=== PATIENT | male | born 1945 | race Two or more races ===

== ENCOUNTER 2020-08-27 16:21 | Inpatient (IN) | payer MEDICARE ==
[~2020-08-27] VITALS: Ht 167.6 cm; Wt 70.5 kg
[2020-08-27] MEDS ORDERED: ASPirin 81 mg TAB PO ONE (17:00)
[2020-08-27 17:10] LABS: Basophils # (auto) 0.1 10 ^3/uL (0-0.2); Basophils % (auto) 0.7 % (0.0-2.0); Eosinophils # (auto) 0.2 10 ^3/uL (0-0.8); Eosinophils % (auto) 2.2 % (0.0-7.0); Hematocrit 47.9 % (41.0-53.0); Hemoglobin 15.8 g/dL (13.5-17.5); Lymphocytes # (auto) 0.9 10 ^3/uL (0.4-5.4); Lymphocytes % (auto) 10.7 % (10.0-50.0); Mean Corpuscular Hemoglobin 28.8 pg (28.0-32.0); Mean Corpuscular Hgb Conc. 32.9 g/dL (32.0-36.0); Mean Corpuscular Volume 87.7 fL (80.0-100.0); Monocytes # (auto) 0.7 10 ^3/uL (0-1.3); Monocytes % (auto) 8.8 % (0.0-12.0); Neutrophils # (auto) 6.6 10 ^3/uL (1.6-8.6); Neutrophils % (auto) 77.6 % (37.0-80.0); Nucleated Red Blood Cells % 0.2 %; Platelet Count (auto) 158 10^3/uL (140-450); Red Blood Cells 5.47 10^6/uL (4.5-5.90); Red Cell Distribution Width 15.9 % (11.8-14.3); White Blood Cell 8.4 10^3/uL (4.4-10.8)
[2020-08-27] MEDS ORDERED: dilTIAZem 25 MG/5 ML VIAL IV ONE ×2 (17:12→17:30)
[2020-08-27 17:14] LABS: Calcium 9.1 mg/dL (8.5-10.1); Potassium 5.4 mmol/L (3.5-5.1)
[2020-08-27 17:16] LABS: BUN/Creatinine Ratio 16.8
[2020-08-27 17:23] LABS: Bilirubin, Total 1.5 mg/dL (0.2-1.0); Total Protein 8.1 g/dL (6.4-8.2)
[2020-08-27] MEDS ORDERED: SODIUM CHLORIDE 0.9% 1,000 ML IV ONE (17:30)
[2020-08-27] MEDS ORDERED: MORPHINE SULF INJ 2 MG/ML SYRINGE 1ML IV ONE (17:45)
[2020-08-27] MEDS ORDERED: ONDANSETRON HCL 4 MG/2 ML VIAL IV ONE (17:45)
[2020-08-27] MEDS ORDERED: InsuLIN REG 1unit/0.01ml Soln (100units/ml) IV ONE (18:00)
[2020-08-27] MEDS ORDERED: MORPHINE SULFATE 4 MG/ML SYR/VIAL IV PRN (18:15)
[2020-08-27] MEDS ORDERED: DEXTROSE (50%) 50ML SYRG IV PRN (18:15)
[2020-08-27] MEDS ORDERED: ACETAMINOPHEN 325 MG TAB PO PRN (18:15)
[2020-08-27] MEDS ORDERED: METOPROLOL TARTRATE 1MG/1ML-5ML VIAL IV PRN (18:15)
[2020-08-27] MEDS ORDERED: NITROGLYCERIN 0.4 MG SL TAB SL PRN ×2 (18:15)
[2020-08-27] MEDS ORDERED: ONDANSETRON HCL 4 MG/2 ML VIAL IV PRN (18:15)
[2020-08-27] MEDS ORDERED: MORPHINE SULF INJ 2 MG/ML SYRINGE 1ML IV PRN (18:15)
[2020-08-27] MEDS: SODIUM CHLORIDE 0.9% 1,000 ML IV SCH (18:47)
[2020-08-27 19:04] LABS: INR 1.19 (0.9-1.15); Partial Thromboplastin Time 26.8 sec (23.0-31.2)
[2020-08-27] MEDS: ACCU-CHEK COMFORT CURVE STRIP VI SCH (20:00)
[2020-08-27] MEDS: InsuLIN REG 1unit/0.01ml Soln (100units/ml) SC SCH (20:00)
--- NOTE | 2020-08-27 20:15 | NUR ---
Telemetry admit from ER MAURO PALUMBO admitted to Telemetry unit after SBAR received. Patient oriented to Jose zuñiga RN, unit, room, bed, and unit policies regarding patient care and visiting hours. Patient now on continuous telemetry monitoring, tele box # [id number] and telemetry reading on arrival to unit is nsr. Patient placed on bedside oxygen, weighed by bedscale and encouraged to call if they need something. All questions and concerns addressed, patient verbalized understanding.
[2020-08-27] MEDS: ATORVASTATIN 20 MG TAB PO SCH (22:00)
[2020-08-27] MEDS: METOPROLOL TARTRATE 25 MG TAB PO SCH (22:00)
[2020-08-27] MEDS: ENOXAPARIN SOD 80 MG/0.8ML SYRINGE SC SCH (22:00)
[2020-08-27] MEDS ORDERED: METOPROLOL TARTRATE 25 MG TAB PO SCH (22:00)
[2020-08-28] MEDS: InsuLIN REG 1unit/0.01ml Soln (100units/ml) SC SCH ×6 (00:01→20:00)
[2020-08-28] MEDS: ACCU-CHEK COMFORT CURVE STRIP VI SCH ×6 (04:00→20:00)
[2020-08-28] MEDS ORDERED: ATOR80TA PO (04:24)
[2020-08-28] MEDS ORDERED: CANA100T OR (04:24)
[2020-08-28] MEDS ORDERED: METO-159 PO (04:24)
[2020-08-28] MEDS: METOPROLOL TARTRATE 25 MG TAB PO SCH ×4 (05:48→21:57)
[2020-08-28 06:09] LABS: Basophils # (auto) 0 10 ^3/uL (0-0.2); Basophils % (auto) 0.5 % (0.0-2.0); Eosinophils # (auto) 0.2 10 ^3/uL (0-0.8); Eosinophils % (auto) 2.3 % (0.0-7.0); Hematocrit 42.9 % (41.0-53.0); Hemoglobin 14.3 g/dL (13.5-17.5); Lymphocytes % (auto) 12.1 % (10.0-50.0); Mean Corpuscular Hemoglobin 28.8 pg (28.0-32.0); Mean Corpuscular Hgb Conc. 33.2 g/dL (32.0-36.0); Mean Corpuscular Volume 86.6 fL (80.0-100.0); Monocytes % (auto) 12.5 % (0.0-12.0); Neutrophils % (auto) 72.6 % (37.0-80.0); Nucleated Red Blood Cells % 0.1 %; Platelet Count (auto) 132 10^3/uL (140-450); Red Blood Cells 4.95 10^6/uL (4.5-5.90); Red Cell Distribution Width 15.3 % (11.8-14.3); White Blood Cell 8.3 10^3/uL (4.4-10.8)
[2020-08-28 06:45] LABS: Potassium 3.9 mmol/L (3.5-5.1)
[2020-08-28 07:23] LABS: BUN/Creatinine Ratio 23.8; Calcium 8.6 mg/dL (8.5-10.1)
[2020-08-28] MEDS: SODIUM CHLORIDE 0.9% 1,000 ML IV SCH ×2 (07:35→21:58)
--- NOTE | 2020-08-28 07:40 | NUR ---
Opening Shift Note Assumed care of patient, awake and alert. No S/S of distress/SOB or pain. Instructed on POC and to call for assist PRN, will continue to monitor for changes Q1hr an
[2020-08-28 08:00] VITALS: BP 133/76
--- NOTE | 2020-08-28 08:00 | NUR ---
PATIENT TAKEN DOWN TO CUTTER IN. NO SIGNS AND SYMPTOMS OF DISTRESS NOTED.
[2020-08-28] MEDS ORDERED: LIDOCAINE 2%HCL (LOCAL ANESTH.) INJ 20ML MDV ONE (08:02)
[2020-08-28] MEDS ORDERED: IOHEXOL 350 MG/ML 100ML IJ ONE (08:03)
[2020-08-28] MEDS ORDERED: SODIUM CHL 0.9% 50 ML ONE (08:31)
[2020-08-28] MEDS ORDERED: fentaNYL CITRATE 100 MCG/2 ML VL ONE (08:31)
[2020-08-28] MEDS ORDERED: ANGIOMAX 250 MG VIAL IV ONE (08:31)
[2020-08-28] MEDS ORDERED: HEPARIN SODIUM (PORCINE) 5000 UNITS/ML 1ML VIAL ONE (08:31)
[2020-08-28] MEDS ORDERED: MIDAZOLAM HCL 1MG/1ML-2 ML VIAL ONE (08:32)
[2020-08-28] MEDS ORDERED: VERAPAMIL 2.5MG/ML INJ 2ML VIAL IV ONE (08:43)
[2020-08-28] MEDS ORDERED: IODIXANOL 320MG/ML 100ML BTL IV ONE ×2 (08:48→09:32)
[2020-08-28 09:05] VITALS: BP 133/76
[2020-08-28] MEDS ORDERED: ASPirin 325 MG TAB ONE (09:52)
[2020-08-28] MEDS ORDERED: CLOPIDOGREL 300 MG TAB ONE (09:52)
[2020-08-28] MEDS: LISINOPRIL 5 MG TAB PO SCH (10:00)
[2020-08-28] MEDS: CLOPIDOGREL BISULFATE 75 MG TAB PO SCH (10:00)
[2020-08-28] MEDS: ASPirin 81 mg TAB PO SCH (10:00)
[2020-08-28] MEDS: DOCUSATE SOD 100 MG CAP PO SCH (10:00)
[2020-08-28] MEDS: ASPirin-EC 81 mg tab PO SCH (10:00)
[2020-08-28] MEDS ORDERED: OPTISON 3ml Vial for INJ IV ONE (10:30)
[2020-08-28 12:00] VITALS: BP 154/86
--- NOTE | 2020-08-28 13:15 | NUR ---
VASC BAND OFF PATIENT TOLERATED WELL. NO SIGNS AND SYMPTOMS OF BLEEDING NOTED. TEGA DERM PLACED SECURELY WITH GAUZE. WILL CONTINUE TO MONITOR.
[2020-08-28 17:03] LABS: Urine WBC None Seen /hpf (0 - 3)
[2020-08-28 17:13] VITALS: BP 153/97
[2020-08-28 17:45] LABS: Urine Bacteria NONE SEEN /hpf (None Seen); Urine Blood Negative /uL (Negative)
[2020-08-28 20:00] VITALS: BP 151/90
[2020-08-28] MEDS: ATORVASTATIN 20 MG TAB PO SCH ×2 (21:56)
[2020-08-28] MEDS: ENOXAPARIN SOD 80 MG/0.8ML SYRINGE SC SCH (21:57)
[2020-08-28 22:06] VITALS: BP 151/90
[2020-08-29] VITALS (7 sets, daily range): BP systolic 87–162; BP diastolic 59–93
[2020-08-29] MEDS: ACCU-CHEK COMFORT CURVE STRIP VI SCH ×5 (04:00→22:14)
[2020-08-29] MEDS: InsuLIN REG 1unit/0.01ml Soln (100units/ml) SC SCH ×4 (04:00→11:33)
[2020-08-29] MEDS: METOPROLOL TARTRATE 25 MG TAB PO SCH (07:48)
[2020-08-29] MEDS: DOCUSATE SOD 100 MG CAP PO SCH (09:56)
[2020-08-29] MEDS: ASPirin 81 mg TAB PO SCH (09:56)
[2020-08-29 09:57] LABS: Basophils # (auto) 0 10 ^3/uL (0-0.2); Basophils % (auto) 0.4 % (0.0-2.0); Eosinophils # (auto) 0.1 10 ^3/uL (0-0.8); Eosinophils % (auto) 1.6 % (0.0-7.0); Hematocrit 43.4 % (41.0-53.0); Hemoglobin 14.5 g/dL (13.5-17.5); Lymphocytes # (auto) 0.6 10 ^3/uL (0.4-5.4); Lymphocytes % (auto) 7.4 % (10.0-50.0); Mean Corpuscular Hemoglobin 28.6 pg (28.0-32.0); Mean Corpuscular Hgb Conc. 33.4 g/dL (32.0-36.0); Mean Corpuscular Volume 85.7 fL (80.0-100.0); Monocytes # (auto) 0.8 10 ^3/uL (0-1.3); Monocytes % (auto) 10.4 % (0.0-12.0); Neutrophils # (auto) 6.5 10 ^3/uL (1.6-8.6); Neutrophils % (auto) 80.2 % (37.0-80.0); Platelet Count (auto) 132 10^3/uL (140-450); Red Blood Cells 5.06 10^6/uL (4.5-5.90); Red Cell Distribution Width 15.7 % (11.8-14.3); White Blood Cell 8.1 10^3/uL (4.4-10.8)
[2020-08-29] MEDS: CLOPIDOGREL BISULFATE 75 MG TAB PO SCH (09:57)
[2020-08-29] MEDS: LISINOPRIL 5 MG TAB PO SCH (09:57)
[2020-08-29] MEDS: ASPirin-EC 81 mg tab PO SCH (09:57)
[2020-08-29] MEDS ORDERED: CARVEDILOL 12.5 MG TAB PO SCH (10:00)
[2020-08-29] MEDS: SODIUM CHLORIDE 0.9% 1,000 ML IV SCH ×2 (10:05→23:35)
[2020-08-29 10:11] LABS: Albumin 3.5 g/dL (3.4-5.0); BUN/Creatinine Ratio 21.3; Calcium 8.4 mg/dL (8.5-10.1); Potassium 4.1 mmol/L (3.5-5.1)
[2020-08-29 10:13] LABS: Bilirubin, Total 1.1 mg/dL (0.2-1.0); Total Protein 7.2 g/dL (6.4-8.2)
--- NOTE | 2020-08-29 15:10 | NUR ---
Opening Shift Note Received report from LISA Hines and assumed care of patient, awake and alert. No S/S of distress/SOB or pain. Instructed patient to call for assist if needed and verbalized understanding.will continue to monitor .
--- NOTE | 2020-08-29 19:00 | NUR ---
Opening Shift Note Assumed care of patient, awake and alert. No S/S of distress/SOB or pain. Instructed on POC and to call for assist PRN, will continue to monitor for changes Q1hr and PRN.
[2020-08-29] MEDS ORDERED: InsuLIN REG 1unit/0.01ml Soln (100units/ml) SC SCH (22:00)
[2020-08-29] MEDS: CARVEDILOL 12.5 MG TAB PO SCH (22:08)
[2020-08-29] MEDS: ATORVASTATIN 20 MG TAB PO SCH (22:08)
[2020-08-29] MEDS: ENOXAPARIN SOD 80 MG/0.8ML SYRINGE SC SCH (22:09)
[2020-08-30 05:00] VITALS: BP 126/111
[2020-08-30] MEDS: CARVEDILOL 12.5 MG TAB PO SCH ×2 (06:11→14:00)
[2020-08-30] MEDS: InsuLIN REG 1unit/0.01ml Soln (100units/ml) SC SCH ×3 (07:00→17:00)
[2020-08-30] MEDS: ACCU-CHEK COMFORT CURVE STRIP VI SCH ×3 (07:00→17:00)
[2020-08-30 07:21] LABS: Hematocrit 38.3 % (41.0-53.0); Hemoglobin 12.8 g/dL (13.5-17.5); Mean Corpuscular Hemoglobin 28.4 pg (28.0-32.0); Mean Corpuscular Hgb Conc. 33.4 g/dL (32.0-36.0); Mean Corpuscular Volume 84.9 fL (80.0-100.0); Platelet Count (auto) 110 10^3/uL (140-450); Red Blood Cells 4.51 10^6/uL (4.5-5.90); Red Cell Distribution Width 15.4 % (11.8-14.3)
[2020-08-30 07:24] LABS: Basophils % (manual) 0 (0.0-2.0); Blast Cells 0; Promyelocytes % 0
[2020-08-30 07:26] LABS: Calcium 8.5 mg/dL (8.5-10.1); Potassium 4.2 mmol/L (3.5-5.1)
[2020-08-30 07:30] LABS: Albumin 3.1 g/dL (3.4-5.0); BUN/Creatinine Ratio 22.3; Magnesium 2.2 mg/dL (1.6-2.6)
[2020-08-30 07:33] LABS: Total Protein 6.2 g/dL (6.4-8.2)
--- NOTE | 2020-08-30 07:50 | NUR ---
Opening Shift Note Assumed care of patient, awake and alert. No S/S of distress/SOB or pain. Instructed on POC and to call for assist PRN, will continue to monitor for changes Q1hr and PRN. Bed locked in lowest position with two side rails up and call light in reach.
[2020-08-30 08:00] VITALS: BP 108/61
[2020-08-30 08:35] LABS: Band Neutrophils % (manual) 9; Eosinophils % (manual) 6 (0-7); Lymphocytes % (manual) 4 (10.0-50.0); Metamyelocytes % 1; Monocytes % (manual) 15 (0-12); Myelocytes % 2; Reactive Lymphocytes 2
[2020-08-30 09:00] VITALS: BP 108/61
[2020-08-30] MEDS ORDERED: LISINOPRIL 5 MG TAB PO SCH (10:00)
[2020-08-30] MEDS: CLOPIDOGREL BISULFATE 75 MG TAB PO SCH (10:44)
[2020-08-30] MEDS: DOCUSATE SOD 100 MG CAP PO SCH (10:44)
[2020-08-30] MEDS: ASPirin 81 mg TAB PO SCH (10:44)
--- NOTE | 2020-08-30 11:29 | NUR ---
Nutrition Assessment Notes Please refer to link for full assessment notes. Est Energy needs: 3587-6899 kcals (20-23 kcal/kgBW) Est Protein needs: 71-78 gms/day (1.0-1.1 gm/kgBW) Will continue to monitor and reassess prn. Addendum: 08/30/20 at [address] Amended: Links added.
--- NOTE | 2020-08-30 12:00 | NUR ---
PATIENT REFUSES INSULIN FOR BS OF 274, STATES IT WILL CORRECT ITSELF. HE TAKES MEDICATIONS AT HOME AND WILL BE DISCHARGED.
[2020-08-30 13:00] VITALS: BP 121/68
[2020-08-30] MEDS: SODIUM CHLORIDE 0.9% 1,000 ML IV SCH (13:11)
--- NOTE | 2020-08-30 15:23 | NUR ---
Medicare IM Patient has been provided with IM by Edel GONZALEZ and placed in chart. Addendum: 08/30/20 at 1524 by Kinjal BARRETT Amended: Links added.
--- NOTE | 2020-08-30 15:54 | NUR ---
Assessment Patient 75 year old male, Patient was unable to participate with SW for assessment, SW worker called maldonado Padgett. Per daughter, prior to admission to [facility] patient is alert and oriented. Per daughter, patient is retired and receives social security benefits as income. Per daughter, patient has his own house on the same property as his daughter Deborah. Per daughter, patient can discharge to maldonado Padgett ([phone]), house to recover his illness. Per daughter, she will provide transportation post discharge. Per daughter, she and her sister (Deborah), are their dad support system. Per daughter, patient does not have an Advance Directive. Discharge planning: Patient will return home or to his daughter Lorin house post discharge and will follow up with PCP post discharge. SW will provide Advance Directive post discharge. There are no other discharge needs to address at this moment. Addendum: 08/30/20 at 1603 by SHAHAB BARRETT Amended: Links added.
--- NOTE | 2020-08-30 16:15 | NUR ---
COREG HELD DO TO DECREASED HEART RATE. RAYMOND FAM AWARE.
[2020-08-30 16:30] VITALS: BP 131/69
[2020-08-30 16:40] VITALS: BP 131/69
--- NOTE | 2020-08-30 18:16 | NUR ---
Discharge instructions given as ordered. Encourage to follow up with PMD as instructed. All questions and concerns addressed. Patient verbalized understanding. Medication reconciliation form completed and copy given to patient. NO Home medications held in Pharmacy and none to be returned to patient, and no needed vaccines given. IV removed with catheter intact, pressure dressing applied. Telemetry unit returned to ICU. Patient taken to vehicle via wheelchair with all personal belongings, accompanied by staff and family member. No distress noted at time of departure. Patient had all new prescriptions in hand of Plavix 75 mg daily, Aspirin 81 mg daily, and Coreg 25 mg PO BID. I picked up and delivered to patient, also educated patient on taking all previous and new prescriptions are prescribed, and do not stop taking any medications without physician instructing.
--- NOTE | 2020-08-30 18:18 | NUR ---
PATIENT DISCHARGE SUMMARY FAXED TO DR MIRANDA. PER NELDA FAM PATIENT WILL BE SCHEDULED TO GO IN FRIDAY SHE HAS CONTACTED HER OFFICE AND CONFIRMED THIS. PATIENT GIVEN NUMBER TO [facility]. PATIENT TO SCHEDULE APPOINTMENT FOR CARDIOLOGY IN 1-2 WEEKS OFFICES WERE CLOSED. PATIENT VERBALIZED UNDERSTANDING.
== END 2020-08-30 18:00 | disposition home or self-care (01) | DRG 246 ==
LOC: ER 16:25 → TELE 16:26 → TELE-CENTR 19:45
PROVIDERS: ADMIT Hospitalist; ATTEND Internal Medicine
PROC: 027034Z Dilation of Coronary Artery, One Artery with Drug-eluting Intraluminal Device, Percutaneous Approach (ICD-10-PCS; principal; 2020-08-28)
PROC: 4A023N7 Measurement of Cardiac Sampling and Pressure, Left Heart, Percutaneous Approach (ICD-10-PCS; 2020-08-28)
PROC: B211YZZ Fluoroscopy of Multiple Coronary Arteries using Other Contrast (ICD-10-PCS; 2020-08-28)
PROC: B213YZZ Fluoroscopy of Multiple Coronary Artery Bypass Grafts using Other Contrast (ICD-10-PCS; 2020-08-28)
PROC: B218YZZ Fluoroscopy of Left Internal Mammary Bypass Graft using Other Contrast (ICD-10-PCS; 2020-08-28)
PROC: B215YZZ Fluoroscopy of Left Heart using Other Contrast (ICD-10-PCS; 2020-08-28)
DX: I21.4 Non-ST elevation (NSTEMI) myocardial infarction (principal); I50.43 Acute on chronic combined systolic (congestive) and diastolic (congestive) heart failure; N17.0 Acute kidney failure with tubular necrosis; I47.1 Supraventricular tachycardia; I13.0 Hypertensive heart and chronic kidney disease with heart failure and stage 1 through stage 4 chronic kidney disease, or unspecified chronic kidney disease; I48.91 Unspecified atrial fibrillation; E11.65 Type 2 diabetes mellitus with hyperglycemia; E11.22 Type 2 diabetes mellitus with diabetic chronic kidney disease; E78.5 Hyperlipidemia, unspecified; I25.10 Atherosclerotic heart disease of native coronary artery without angina pectoris; N18.9 Chronic kidney disease, unspecified; Z79.01 Long term (current) use of anticoagulants; Z79.82 Long term (current) use of aspirin; Z82.49 Family history of ischemic heart disease and other diseases of the circulatory system; Z95.1 Presence of aortocoronary bypass graft
CPT/HCPCS: 36415; 71045; 80048; 80053; 80061; 81001; 82962; 83036; 83735; 83880; 84443; 84484; 85007; 85025; 85027; 85610; 85730; 92928; 93005; 93306; 93459; 99152; 99153; C1874; G0378; J1815; J2250; J2405; Q9956; Q9967

== ENCOUNTER 2020-12-31 21:59 | Inpatient (IN) | payer MEDICARE ==
[~2020-12-31] VITALS: Ht 165.1 cm; Wt 79.0 kg
[2020-12-31 21:50] VITALS: BP 93/61
[~2020-12-31 21:59] MED LIST: ATOR80TA PO; CANA100T OR
[2020-12-31] MEDS ORDERED: GLIP10TA9 PO ×2 (22:22→22:49)
[2020-12-31] MEDS ORDERED: MORPHINE SULF INJ 2 MG/ML SYRINGE 1ML IV PRN ×2 (22:45→23:15)
[2020-12-31] MEDS ORDERED: NITROGLYCERIN 0.4 MG SL TAB SL PRN (22:45)
[2020-12-31] MEDS ORDERED: ATOR-47 PO (22:49)
[2020-12-31] MEDS ORDERED: CARV25TA55 PO (22:49)
[2020-12-31] MEDS ORDERED: ASPI-543 PO (22:49)
[2020-12-31] MEDS ORDERED: GLIM4TAB42 PO (22:49)
[2020-12-31] MEDS ORDERED: CANA100T PO (22:49)
[2020-12-31] MEDS ORDERED: FERR27TA2 PO (22:49)
[2020-12-31] MEDS ORDERED: LISI-275 PO (22:49)
[2020-12-31] MEDS ORDERED: HEPARIN DRIP/D5W 100UNITS/ML 250 ML IV SCH (23:45)
[2020-12-31] MEDS ORDERED: HEPARIN SODIUM (PORCINE) 5000 UNITS/ML 1ML VIAL IV ONE (23:45)
[2021-01-01] MEDS ORDERED: DEXTROSE (50%) 50ML SYRG IV PRN
[2021-01-01 01:25] LABS: Basophils # (auto) 0 10 ^3/uL (0-0.2); Basophils % (auto) 0.2 % (0.0-2.0); Eosinophils # (auto) 0.1 10 ^3/uL (0-0.8); Eosinophils % (auto) 1.9 % (0.0-7.0); Hematocrit 43.2 % (41.0-53.0); Hemoglobin 14.5 g/dL (13.5-17.5); Lymphocytes # (auto) 0.5 10 ^3/uL (0.4-5.4); Lymphocytes % (auto) 5.9 % (10.0-50.0); Mean Corpuscular Hemoglobin 28.4 pg (28.0-32.0); Mean Corpuscular Hgb Conc. 33.7 g/dL (32.0-36.0); Mean Corpuscular Volume 84.5 fL (80.0-100.0); Monocytes # (auto) 0.6 10 ^3/uL (0-1.3); Monocytes % (auto) 8.2 % (0.0-12.0); Neutrophils # (auto) 6.5 10 ^3/uL (1.6-8.6); Neutrophils % (auto) 83.8 % (37.0-80.0); Nucleated Red Blood Cells % 0.1 %; Platelet Count (auto) 140 10^3/uL (140-450); Red Blood Cells 5.12 10^6/uL (4.5-5.90); Red Cell Distribution Width 18.3 % (11.8-14.3); White Blood Cell 7.8 10^3/uL (4.4-10.8)
[2021-01-01 01:37] LABS: INR 1.13 (0.9-1.15); Partial Thromboplastin Time 30.2 sec (23.0-31.2)
[2021-01-01] MEDS ORDERED: HEPARIN SODIUM (PORCINE) 5000 UNITS/ML 1ML VIAL IV ONE (01:44)
[2021-01-01] MEDS ORDERED: HEPARIN DRIP/D5W 100UNITS/ML 250 ML IV SCH (01:46)
[2021-01-01 05:00] VITALS: BP 101/65
[2021-01-01] MEDS: InsuLIN REG 1unit/0.01ml Soln (100units/ml) SC SCH ×4 (06:35→22:00)
[2021-01-01] MEDS: ACCU-CHEK COMFORT CURVE STRIP VI SCH ×4 (06:36→22:08)
[2021-01-01] MEDS ORDERED: LIDOCAINE 2%HCL (LOCAL ANESTH.) INJ 20ML MDV ONE (07:18)
[2021-01-01] MEDS ORDERED: IODIXANOL 320MG/ML 100ML BTL IV ONE ×3 (07:18→09:13)
[2021-01-01] MEDS ORDERED: fentaNYL CITRATE 100 MCG/2 ML VL ONE (07:51)
[2021-01-01] MEDS ORDERED: ANGIOMAX 250 MG VIAL IV ONE (07:51)
[2021-01-01] MEDS ORDERED: SODIUM CHL 0.9% 50 ML ONE (07:52)
[2021-01-01] MEDS ORDERED: MIDAZOLAM HCL 1MG/1ML-2 ML VIAL ONE (07:52)
[2021-01-01] MEDS ORDERED: TICAGRELOR 90 MG TAB ONE (09:36)
[2021-01-01] MEDS ORDERED: ASPirin 325 MG TAB ONE (09:36)
[2021-01-01] MEDS ORDERED: levoFLOXacin 500MG 100 ML IV SCH (10:00)
[2021-01-01] MEDS ORDERED: CLOPIDOGREL BISULFATE 75 MG TAB PO SCH (10:00)
[2021-01-01] MEDS: INSULIN LANTUS (GLARGINE) 1 /0.01ml (100units/ml) SC SCH (10:00)
[2021-01-01 11:34] LABS: Basophils # (auto) 0 10 ^3/uL (0-0.2); Basophils % (auto) 0.2 % (0.0-2.0); Eosinophils # (auto) 0.2 10 ^3/uL (0-0.8); Eosinophils % (auto) 2.2 % (0.0-7.0); Hematocrit 42.3 % (41.0-53.0); Hemoglobin 14.1 g/dL (13.5-17.5); Lymphocytes # (auto) 0.5 10 ^3/uL (0.4-5.4); Lymphocytes % (auto) 6.7 % (10.0-50.0); Mean Corpuscular Hemoglobin 27.9 pg (28.0-32.0); Mean Corpuscular Hgb Conc. 33.2 g/dL (32.0-36.0); Monocytes # (auto) 0.7 10 ^3/uL (0-1.3); Monocytes % (auto) 9.4 % (0.0-12.0); Neutrophils # (auto) 5.6 10 ^3/uL (1.6-8.6); Neutrophils % (auto) 81.5 % (37.0-80.0); Platelet Count (auto) 114 10^3/uL (140-450); Red Blood Cells 5.04 10^6/uL (4.5-5.90); Red Cell Distribution Width 17.7 % (11.8-14.3); White Blood Cell 6.9 10^3/uL (4.4-10.8)
[2021-01-01 12:01] LABS: INR 1.67 (0.9-1.15)
[2021-01-01 12:03] LABS: Partial Thromboplastin Time 84.8 sec (23.0-31.2)
[2021-01-01 12:14] LABS: Calcium 8.1 mg/dL (8.5-10.1); Potassium 3.8 mmol/L (3.5-5.1)
[2021-01-01] MEDS: ASPirin 81 mg TAB PO SCH (12:14)
[2021-01-01 13:00] VITALS: BP 106/73
[2021-01-01 16:22] LABS: INR 1.28 (0.9-1.15); Partial Thromboplastin Time 49.4 sec (23.0-31.2)
[2021-01-01 17:00] VITALS: BP 114/73
[2021-01-01] MEDS: TICAGRELOR 90 MG TAB PO SCH (21:57)
[2021-01-01] MEDS: ATORVASTATIN 20 MG TAB PO SCH (21:58)
[2021-01-01 22:00] VITALS: BP 104/67
[2021-01-02 05:00] VITALS: BP 120/78
[2021-01-02] MEDS: ACCU-CHEK COMFORT CURVE STRIP VI SCH ×4 (06:44→22:12)
[2021-01-02] MEDS: InsuLIN REG 1unit/0.01ml Soln (100units/ml) SC SCH ×4 (06:45→22:13)
[2021-01-02 09:00] VITALS: BP 98/56
[2021-01-02 09:14] LABS: Basophils # (auto) 0 10 ^3/uL (0-0.2); Basophils % (auto) 0.3 % (0.0-2.0); Eosinophils # (auto) 0.1 10 ^3/uL (0-0.8); Eosinophils % (auto) 1.8 % (0.0-7.0); Hematocrit 41.8 % (41.0-53.0); Hemoglobin 13.9 g/dL (13.5-17.5); Lymphocytes # (auto) 0.3 10 ^3/uL (0.4-5.4); Lymphocytes % (auto) 4.7 % (10.0-50.0); Mean Corpuscular Hgb Conc. 33.3 g/dL (32.0-36.0); Mean Corpuscular Volume 84.1 fL (80.0-100.0); Monocytes # (auto) 0.5 10 ^3/uL (0-1.3); Monocytes % (auto) 7.1 % (0.0-12.0); Neutrophils # (auto) 6.3 10 ^3/uL (1.6-8.6); Neutrophils % (auto) 86.1 % (37.0-80.0); Nucleated Red Blood Cells % 0.2 %; Platelet Count (auto) 131 10^3/uL (140-450); Red Blood Cells 4.97 10^6/uL (4.5-5.90); Red Cell Distribution Width 18.4 % (11.8-14.3); White Blood Cell 7.3 10^3/uL (4.4-10.8)
[2021-01-02 09:24] LABS: Albumin 2.6 g/dL (3.4-5.0); Calcium 8.2 mg/dL (8.5-10.1); Magnesium 2.4 mg/dL (1.6-2.6); Potassium 3.8 mmol/L (3.5-5.1)
[2021-01-02 09:28] LABS: BUN/Creatinine Ratio 27.6; Bilirubin, Total 1.4 mg/dL (0.2-1.0); Total Protein 5.9 g/dL (6.4-8.2)
[2021-01-02] MEDS: ASPirin 81 mg TAB PO SCH (10:46)
[2021-01-02] MEDS: TICAGRELOR 90 MG TAB PO SCH ×2 (10:47→22:24)
[2021-01-02] MEDS: SACUBITRIL-VALSARTAN 24mg/26mg TAB PO SCH ×2 (10:48→22:30)
[2021-01-02] MEDS: levoFLOXacin 250MG 50 ML IV SCH (10:48)
[2021-01-02] MEDS: CARVEDILOL 3.125 MG TAB PO SCH ×2 (10:48→22:30)
[2021-01-02] MEDS: INSULIN LANTUS (GLARGINE) 1 /0.01ml (100units/ml) SC SCH (12:20)
[2021-01-02 13:00] VITALS: BP 108/64
[2021-01-02 16:49] VITALS: BP 104/59
[2021-01-02] MEDS ORDERED: METOPROLOL TARTRATE 1MG/1ML-5ML VIAL IV ONE (19:30)
[2021-01-02] MEDS ORDERED: AMIODARONE 450mg/250ml AE 250 ML IV SCH (21:15)
[2021-01-02] MEDS ORDERED: SODIUM CHLORIDE 0.9% 250 ML IV ONE (21:15)
[2021-01-02 22:12] VITALS: BP 88/63
[2021-01-02] MEDS: ATORVASTATIN 20 MG TAB PO SCH (22:14)
[2021-01-02] MEDS: AMIODARONE 450mg/250ml AE 250 ML IV SCH (22:21)
[2021-01-03] MEDS: AMIODARONE 450mg/250ml AE 250 ML IV SCH ×3 (05:13→20:15)
[2021-01-03 05:17] VITALS: BP 122/75
[2021-01-03] MEDS: ACCU-CHEK COMFORT CURVE STRIP VI SCH ×4 (06:42→22:11)
[2021-01-03] MEDS: InsuLIN REG 1unit/0.01ml Soln (100units/ml) SC SCH ×4 (06:49→22:27)
[2021-01-03] MEDS ORDERED: CLOPIDOGREL 300 MG TAB PO ONE (08:00)
[2021-01-03 09:00] VITALS: BP 114/71
[2021-01-03] MEDS: levoFLOXacin 250MG 50 ML IV SCH (10:15)
[2021-01-03] MEDS: ASPirin 81 mg TAB PO SCH (10:16)
[2021-01-03] MEDS: SACUBITRIL-VALSARTAN 24mg/26mg TAB PO SCH ×2 (10:16→22:12)
[2021-01-03] MEDS: ENOXAPARIN SOD 80 MG/0.8ML SYRINGE SC SCH ×2 (10:17→22:11)
[2021-01-03] MEDS ORDERED: PANTOPRAZOLE 40 MG TAB PO ONE (11:00)
[2021-01-03] MEDS: INSULIN LANTUS (GLARGINE) 1 /0.01ml (100units/ml) SC SCH (11:45)
[2021-01-03 13:00] VITALS: BP 106/69
[2021-01-03] MEDS: METOPROLOL TARTRATE 50 MG TAB PO SCH ×2 (14:00→22:20)
[2021-01-03] MEDS: FUROSEMIDE 40 MG/4 ML VIAL IV SCH (14:29)
[2021-01-03 17:00] VITALS: BP 129/56
[2021-01-03 20:00] VITALS: BP 125/63
[2021-01-03 22:00] VITALS: BP 125/63
[2021-01-03] MEDS: ATORVASTATIN 20 MG TAB PO SCH (22:11)
[2021-01-04] VITALS (7 sets, daily range): BP systolic 93–113; BP diastolic 46–74
[2021-01-04] MEDS: METOPROLOL TARTRATE 50 MG TAB PO SCH (05:50)
[2021-01-04] MEDS: ACCU-CHEK COMFORT CURVE STRIP VI SCH ×4 (06:33→22:04)
[2021-01-04] MEDS: InsuLIN REG 1unit/0.01ml Soln (100units/ml) SC SCH ×4 (06:33→22:05)
[2021-01-04 06:45] LABS: BUN/Creatinine Ratio 29.8; Calcium 7.9 mg/dL (8.5-10.1)
[2021-01-04] MEDS: PANTOPRAZOLE 40 MG TAB PO SCH (09:59)
[2021-01-04] MEDS: CLOPIDOGREL BISULFATE 75 MG TAB PO SCH (09:59)
[2021-01-04] MEDS: SACUBITRIL-VALSARTAN 24mg/26mg TAB PO SCH ×2 (09:59→22:09)
[2021-01-04] MEDS: levoFLOXacin 250MG 50 ML IV SCH (10:00)
[2021-01-04] MEDS: APIXABAN 5 MG TAB PO SCH ×2 (10:00→22:09)
[2021-01-04] MEDS: METOPROLOL SUCCINATE XL 50 MG TAB PO SCH (10:00)
[2021-01-04] MEDS ORDERED: PANTOPRAZOLE 40 MG TAB PO SCH (10:00)
[2021-01-04] MEDS: FUROSEMIDE 40 MG/4 ML VIAL IV SCH (10:09)
[2021-01-04] MEDS: INSULIN LANTUS (GLARGINE) 1 /0.01ml (100units/ml) SC SCH (10:12)
[2021-01-04] MEDS ORDERED: AMIODARONE HCL 200 MG TAB PO SCH (22:00)
[2021-01-04] MEDS: ATORVASTATIN 20 MG TAB PO SCH (22:09)
[2021-01-05 05:44] VITALS: BP 109/56
[2021-01-05 07:39] LABS: BUN/Creatinine Ratio 29.2; Calcium 8.2 mg/dL (8.5-10.1); Potassium 4.1 mmol/L (3.5-5.1)
[2021-01-05 08:00] VITALS: BP 105/58
[2021-01-05] MEDS: ACCU-CHEK COMFORT CURVE STRIP VI SCH ×3 (09:00→17:56)
[2021-01-05] MEDS: InsuLIN REG 1unit/0.01ml Soln (100units/ml) SC SCH ×3 (09:00→17:55)
[2021-01-05] MEDS: SACUBITRIL-VALSARTAN 24mg/26mg TAB PO SCH (09:44)
[2021-01-05] MEDS: APIXABAN 5 MG TAB PO SCH (09:44)
[2021-01-05] MEDS: METOPROLOL SUCCINATE XL 50 MG TAB PO SCH (09:44)
[2021-01-05] MEDS: PANTOPRAZOLE 40 MG TAB PO SCH (09:44)
[2021-01-05] MEDS: CLOPIDOGREL BISULFATE 75 MG TAB PO SCH (09:44)
[2021-01-05] MEDS: INSULIN LANTUS (GLARGINE) 1 /0.01ml (100units/ml) SC SCH (09:45)
[2021-01-05 12:00] VITALS: BP 126/75
[2021-01-05 16:00] VITALS: BP 117/59
[2021-01-05 17:17] VITALS: BP 117/59
== END 2021-01-05 19:00 | disposition home or self-care (01) | DRG 250 ==
LOC: TELE-CENTR 21:59
PROVIDERS: ADMIT Internal Medicine; ATTEND Internal Medicine
PROC: 4A023N7 Measurement of Cardiac Sampling and Pressure, Left Heart, Percutaneous Approach (ICD-10-PCS; principal; 2021-01-01)
PROC: 02703ZZ Dilation of Coronary Artery, One Artery, Percutaneous Approach (ICD-10-PCS; 2021-01-01)
PROC: B213YZZ Fluoroscopy of Multiple Coronary Artery Bypass Grafts using Other Contrast (ICD-10-PCS; 2021-01-01)
PROC: B211YZZ Fluoroscopy of Multiple Coronary Arteries using Other Contrast (ICD-10-PCS; 2021-01-01)
PROC: B218YZZ Fluoroscopy of Left Internal Mammary Bypass Graft using Other Contrast (ICD-10-PCS; 2021-01-01)
PROC: B215YZZ Fluoroscopy of Left Heart using Other Contrast (ICD-10-PCS; 2021-01-01)
DX: T82.855A Stenosis of coronary artery stent, initial encounter (principal); I21.4 Non-ST elevation (NSTEMI) myocardial infarction; I25.810 Atherosclerosis of coronary artery bypass graft(s) without angina pectoris; E87.1 Hypo-osmolality and hyponatremia; I13.0 Hypertensive heart and chronic kidney disease with heart failure and stage 1 through stage 4 chronic kidney disease, or unspecified chronic kidney disease; I25.110 Atherosclerotic heart disease of native coronary artery with unstable angina pectoris; I50.20 Unspecified systolic (congestive) heart failure; R18.8 Other ascites; E11.22 Type 2 diabetes mellitus with diabetic chronic kidney disease; E11.40 Type 2 diabetes mellitus with diabetic neuropathy, unspecified; E11.649 Type 2 diabetes mellitus with hypoglycemia without coma; E78.5 Hyperlipidemia, unspecified; I25.5 Ischemic cardiomyopathy; I27.20 Pulmonary hypertension, unspecified; I48.0 Paroxysmal atrial fibrillation; Y84.0 Cardiac catheterization as the cause of abnormal reaction of the patient, or of later complication, without mention of misadventure at the time of the procedure; K57.30 Diverticulosis of large intestine without perforation or abscess without bleeding; K74.60 Unspecified cirrhosis of liver; K80.20 Calculus of gallbladder without cholecystitis without obstruction; N18.9 Chronic kidney disease, unspecified; Z79.02 Long term (current) use of antithrombotics/antiplatelets; Z79.84 Long term (current) use of oral hypoglycemic drugs; Z79.899 Other long term (current) drug therapy; Z83.3 Family history of diabetes mellitus; Z95.1 Presence of aortocoronary bypass graft; Y92.89 Other specified places as the place of occurrence of the external cause
CPT/HCPCS: 36415; 76700; 80048; 80053; 82270; 82962; 83735; 85025; 85610; 85730; 92937; 93306; 93458; 99152; 99153; G0378; J1815; J1956; J2250; Q9967

== ENCOUNTER 2021-05-26 21:21 | Inpatient (IN) | payer MEDICARE ==
[~2021-05-26] VITALS: Ht 172.7 cm; Wt 84.4 kg
[~2021-05-26 21:21] MED LIST changes: -CANA100T OR; +CANA100T PO; +CARV25TA55 PO; +FERR27TA2 PO; +GLIM4TAB42 PO; +GLIP10TA9 PO
[2021-05-26 22:06] LABS: Basophils # (auto) 0 10 ^3/uL (0-0.2); Eosinophils # (auto) 0.1 10 ^3/uL (0-0.8); Lymphocytes # (auto) 0.5 10 ^3/uL (0.4-5.4); Mean Corpuscular Hemoglobin 19.2 pg (28.0-32.0); Monocytes # (auto) 0.5 10 ^3/uL (0-1.3); Neutrophils # (auto) 4.7 10 ^3/uL (1.6-8.6); Nucleated Red Blood Cells % 0.3 %; Red Blood Cells 2.46 10^6/uL (4.5-5.90)
[2021-05-26 22:08] LABS: Basophils % (auto) 0.5 % (0.0-2.0); Eosinophils % (auto) 1.9 % (0.0-7.0); Hematocrit 15.8 % (41.0-53.0); Monocytes % (auto) 9.2 % (0.0-12.0); Neutrophils % (auto) 79.4 % (37.0-80.0); White Blood Cell 5.9 10^3/uL (4.4-10.8)
[2021-05-26 22:22] LABS: Hemoglobin 4.7 g/dL (13.5-17.5)
[2021-05-26 22:25] LABS: Anion Gap 9 (5-15); Blood Urea Nitrogen 51 mg/dL (7-18); Calcium 7.5 mg/dL (8.5-10.1); Carbon Dioxide 17 mmol/L (21-32); Chloride 115 mmol/L (98-107); Glucose 261 mg/dL (74-106); Potassium 4.3 mmol/L (3.5-5.1); Sodium 141 mmol/L (136-145)
[2021-05-26 22:28] LABS: Alanine Aminotransferase 18 U/L (16-61); Albumin 2.1 g/dL (3.4-5.0); BUN/Creatinine Ratio 27.4; GFR African American 46 mL/min; GFR Non-African American 38 mL/min
[2021-05-26 22:33] LABS: Alkaline Phosphatase 65 U/L (45-117); Bilirubin, Total 0.7 mg/dL (0.2-1.0); Total Protein 4.9 g/dL (6.4-8.2)
[2021-05-26 22:34] LABS: INR 1.37 (0.9-1.15); Partial Thromboplastin Time 32.6 sec (23.6-33.0)
[2021-05-26 22:44] LABS: Aspartate Aminotransferase 13 U/L (15-37)
[2021-05-27] VITALS (12 sets, daily range): BP systolic 110–124; BP diastolic 40–65
[2021-05-27] MEDS ORDERED: MORPHINE SULFATE INJECTION 2 MG/ML SYRG IV PRN ×2 (01:45)
[2021-05-27] MEDS ORDERED: ONDANSETRON HCL 4 MG/2 ML VIAL IV PRN (01:45)
[2021-05-27] MEDS ORDERED: DEXTROSE (50%) 50ML SYRG IV PRN (01:45)
[2021-05-27] MEDS ORDERED: NITROGLYCERIN 0.4 MG SL TAB SL PRN (01:45)
[2021-05-27] MEDS: ACCU-CHEK COMFORT CURVE STRIP VI SCH ×3 (06:35→18:00)
[2021-05-27] MEDS: InsuLIN REG 1unit/0.01ml Soln (100units/ml) SC SCH ×3 (06:35→18:00)
[2021-05-27 08:25] LABS: Urine Bacteria NONE SEEN /hpf (None Seen); Urine Blood Negative /uL (Negative); Urine Mucus FEW (None Seen); Urine Specific Gravity 1.021 (1.001-1.035); Urine WBC 1 /hpf (0 - 3)
[2021-05-27] MEDS: CARVEDILOL 12.5 MG TAB PO SCH ×2 (09:42→22:00)
[2021-05-27] MEDS: PANTOPRAZOLE 40 MG/10 ML VIAL INJ IV SCH ×2 (10:05→22:18)
[2021-05-27] MEDS: ATORVASTATIN 20 MG TAB PO SCH (10:05)
[2021-05-27 10:42] LABS: Basophils # (auto) 0 10 ^3/uL (0-0.2); Basophils % (auto) 0.6 % (0.0-2.0); Eosinophils # (auto) 0.2 10 ^3/uL (0-0.8); Eosinophils % (auto) 2.3 % (0.0-7.0); Hematocrit 27.1 % (41.0-53.0); Hemoglobin 8.5 g/dL (13.5-17.5); Lymphocytes # (auto) 0.5 10 ^3/uL (0.4-5.4); Lymphocytes % (auto) 6.8 % (10.0-50.0); Mean Corpuscular Hemoglobin 22.1 pg (28.0-32.0); Mean Corpuscular Hgb Conc. 31.2 g/dL (32.0-36.0); Mean Corpuscular Volume 70.9 fL (80.0-100.0); Monocytes # (auto) 0.5 10 ^3/uL (0-1.3); Monocytes % (auto) 7.2 % (0.0-12.0); Neutrophils # (auto) 5.6 10 ^3/uL (1.6-8.6); Neutrophils % (auto) 83.1 % (37.0-80.0); Nucleated Red Blood Cells % 0.1 %; Red Blood Cells 3.83 10^6/uL (4.5-5.90); White Blood Cell 6.8 10^3/uL (4.4-10.8)
[2021-05-27 10:43] LABS: Red Cell Distribution Width 26.5 % (11.8-14.3)
[2021-05-27 10:59] LABS: Albumin 2.4 g/dL (3.4-5.0); Calcium 8.3 mg/dL (8.5-10.1); Potassium 4.4 mmol/L (3.5-5.1)
[2021-05-27 11:03] LABS: BUN/Creatinine Ratio 31.3; Total Protein 5.5 g/dL (6.4-8.2)
[2021-05-27] MEDS: SODIUM CHLORIDE 0.9% 1,000 ML IV SCH (14:15)
[2021-05-27 17:25] LABS: % Iron Saturation 6.9 % (20-55)
[2021-05-27 17:35] LABS: Thyroid Stimulating Hormone 2.82 uIU/mL (0.358-3.74)
[2021-05-27 17:50] LABS: Ferritin 6.6 ng/mL (10-322); Free T4 (Free Thyroxine) 1.34 ng/dL (0.89-1.76)
[2021-05-28] VITALS (7 sets, daily range): BP systolic 115–134; BP diastolic 54–62
[2021-05-28] MEDS: ACCU-CHEK COMFORT CURVE STRIP VI SCH ×4 (00:45→17:16)
[2021-05-28] MEDS: InsuLIN REG 1unit/0.01ml Soln (100units/ml) SC SCH ×4 (00:46→17:16)
[2021-05-28 02:19] LABS: Protein, Urine 21.9 mg/dL (0.0-11.9)
[2021-05-28] MEDS: SODIUM CHLORIDE 0.9% 1,000 ML IV SCH ×2 (04:33→15:28)
[2021-05-28 06:24] LABS: Basophils # (auto) 0 10 ^3/uL (0-0.2); Eosinophils # (auto) 0.2 10 ^3/uL (0-0.8); Hemoglobin 9.1 g/dL (13.5-17.5); Lymphocytes # (auto) 0.5 10 ^3/uL (0.4-5.4); Nucleated Red Blood Cells % 0.1 %
[2021-05-28 06:29] LABS: Basophils % (auto) 0.6 % (0.0-2.0); Hematocrit 27.8 % (41.0-53.0); Lymphocytes % (auto) 8.9 % (10.0-50.0); Mean Corpuscular Hemoglobin 23.2 pg (28.0-32.0); Mean Corpuscular Hgb Conc. 32.8 g/dL (32.0-36.0); Mean Corpuscular Volume 70.7 fL (80.0-100.0); Monocytes # (auto) 0.4 10 ^3/uL (0-1.3); Monocytes % (auto) 8.1 % (0.0-12.0); Neutrophils # (auto) 4.3 10 ^3/uL (1.6-8.6); Neutrophils % (auto) 78.4 % (37.0-80.0); Red Blood Cells 3.93 10^6/uL (4.5-5.90); White Blood Cell 5.4 10^3/uL (4.4-10.8)
[2021-05-28 06:45] LABS: Red Cell Distribution Width 25.7 % (11.8-14.3)
[2021-05-28 06:59] LABS: Albumin 2.2 g/dL (3.4-5.0); Calcium 7.8 mg/dL (8.5-10.1)
[2021-05-28 07:03] LABS: BUN/Creatinine Ratio 28.3; Bilirubin, Total 1.4 mg/dL (0.2-1.0); Total Protein 5.5 g/dL (6.4-8.2)
[2021-05-28 07:07] LABS: Cholesterol 74 mg/dL (< 200); HDL Cholesterol 28 mg/dL (40-59); LDL Cholesterol 38 mg/dL (< 100); Triglycerides 114 mg/dL (< 150)
[2021-05-28] MEDS: PANTOPRAZOLE 40 MG/10 ML VIAL INJ IV SCH ×2 (09:31→22:55)
[2021-05-28] MEDS: CARVEDILOL 12.5 MG TAB PO SCH ×2 (09:32→22:00)
[2021-05-28] MEDS: ATORVASTATIN 20 MG TAB PO SCH (09:34)
[2021-05-28 10:05] LABS: Folate (Folic Acid) 14.33 ng/mL (5.38-24)
[2021-05-29] MEDS: ACCU-CHEK COMFORT CURVE STRIP VI SCH ×4 (00:15→17:17)
[2021-05-29] MEDS: InsuLIN REG 1unit/0.01ml Soln (100units/ml) SC SCH ×4 (06:00→17:17)
[2021-05-29] MEDS: SODIUM CHLORIDE 0.9% 1,000 ML IV SCH ×2 (06:00→17:54)
[2021-05-29 06:55] LABS: Basophils # (auto) 0 10 ^3/uL (0-0.2); Eosinophils # (auto) 0.3 10 ^3/uL (0-0.8); Monocytes # (auto) 0.6 10 ^3/uL (0-1.3); Neutrophils # (auto) 3.7 10 ^3/uL (1.6-8.6); Nucleated Red Blood Cells % 0.1 %; White Blood Cell 5.1 10^3/uL (4.4-10.8)
[2021-05-29 06:58] LABS: Basophils % (auto) 0.8 % (0.0-2.0); Eosinophils % (auto) 5.2 % (0.0-7.0); Hematocrit 26.7 % (41.0-53.0); Hemoglobin 8.6 g/dL (13.5-17.5); Lymphocytes # (auto) 0.6 10 ^3/uL (0.4-5.4); Lymphocytes % (auto) 10.8 % (10.0-50.0); Mean Corpuscular Hemoglobin 22.4 pg (28.0-32.0); Mean Corpuscular Hgb Conc. 32.2 g/dL (32.0-36.0); Mean Corpuscular Volume 69.6 fL (80.0-100.0); Monocytes % (auto) 11.9 % (0.0-12.0); Neutrophils % (auto) 71.3 % (37.0-80.0); Red Blood Cells 3.84 10^6/uL (4.5-5.90)
[2021-05-29 07:10] LABS: Red Cell Distribution Width 26.1 % (11.8-14.3)
[2021-05-29 07:16] LABS: Albumin 2.2 g/dL (3.4-5.0); BUN/Creatinine Ratio 20.2; Calcium 7.7 mg/dL (8.5-10.1); Potassium 3.9 mmol/L (3.5-5.1)
[2021-05-29 07:18] LABS: Bilirubin, Total 1.3 mg/dL (0.2-1.0); Total Protein 5.2 g/dL (6.4-8.2)
[2021-05-29 08:00] VITALS: BP 126/61
[2021-05-29 09:00] VITALS: BP 126/61
[2021-05-29] MEDS: ATORVASTATIN 20 MG TAB PO SCH (09:26)
[2021-05-29] MEDS: PANTOPRAZOLE 40 MG/10 ML VIAL INJ IV SCH ×2 (09:26→22:00)
[2021-05-29] MEDS: CARVEDILOL 12.5 MG TAB PO SCH ×2 (10:00→22:00)
[2021-05-29 12:35] VITALS: BP 123/49
[2021-05-29 16:56] VITALS: BP 128/63
[2021-05-29 22:00] VITALS: BP 136/83
[2021-05-30] MEDS: ACCU-CHEK COMFORT CURVE STRIP VI SCH ×4 (00:09→17:43)
[2021-05-30] MEDS: InsuLIN REG 1unit/0.01ml Soln (100units/ml) SC SCH ×4 (00:12→17:43)
[2021-05-30 05:00] VITALS: BP 126/67
[2021-05-30 06:43] LABS: Basophils # (auto) 0 10 ^3/uL (0-0.2); Basophils % (auto) 0.7 % (0.0-2.0); Eosinophils # (auto) 0.2 10 ^3/uL (0-0.8); Lymphocytes # (auto) 0.4 10 ^3/uL (0.4-5.4); Mean Corpuscular Hemoglobin 22.7 pg (28.0-32.0); Monocytes # (auto) 0.6 10 ^3/uL (0-1.3); Neutrophils % (auto) 76.8 % (37.0-80.0); Nucleated Red Blood Cells % 0.1 %
[2021-05-30 06:45] LABS: Eosinophils % (auto) 3.9 % (0.0-7.0); Hematocrit 27.1 % (41.0-53.0); Hemoglobin 8.7 g/dL (13.5-17.5); Mean Corpuscular Hgb Conc. 32.2 g/dL (32.0-36.0); Mean Corpuscular Volume 70.4 fL (80.0-100.0); Monocytes % (auto) 10.6 % (0.0-12.0); Red Blood Cells 3.85 10^6/uL (4.5-5.90); White Blood Cell 5.2 10^3/uL (4.4-10.8)
[2021-05-30 07:04] LABS: Potassium 4.1 mmol/L (3.5-5.1)
[2021-05-30 07:17] LABS: Albumin 2.3 g/dL (3.4-5.0); BUN/Creatinine Ratio 15.1; Bilirubin, Total 1.2 mg/dL (0.2-1.0); Total Protein 5.6 g/dL (6.4-8.2)
[2021-05-30 09:00] VITALS: BP 123/55
[2021-05-30] MEDS: PANTOPRAZOLE 40 MG/10 ML VIAL INJ IV SCH ×2 (10:08→22:03)
[2021-05-30] MEDS: ATORVASTATIN 20 MG TAB PO SCH (10:08)
[2021-05-30] MEDS: SACUBITRIL-VALSARTAN 24mg/26mg TAB PO SCH ×2 (10:08→22:03)
[2021-05-30] MEDS: CARVEDILOL 12.5 MG TAB PO SCH ×2 (10:09→22:00)
[2021-05-30] MEDS: SODIUM CHLORIDE 0.9% 1,000 ML IV SCH ×2 (10:11→22:13)
[2021-05-30 13:00] VITALS: BP 120/57
[2021-05-30] MEDS ORDERED: diphenhdrAMINE HCL 50 MG/1 ML VL ONE (13:03)
[2021-05-30] MEDS ORDERED: SODIUM CHLORIDE LOCK 10 ML ONE (13:03)
[2021-05-30] MEDS ORDERED: LIDOCAINE VISCOUS 2% 15ML UD ONE (13:03)
[2021-05-30] MEDS ORDERED: fentaNYL CITRATE 100 MCG/2 ML VL ONE (13:03)
[2021-05-30] MEDS ORDERED: MIDAZOLAM HCL 5 MG/ML-1ML VIAL ONE (13:03)
[2021-05-30 22:00] VITALS: BP 122/56
[2021-05-31] MEDS: ACCU-CHEK COMFORT CURVE STRIP VI SCH ×4 (00:20→18:44)
[2021-05-31] MEDS: InsuLIN REG 1unit/0.01ml Soln (100units/ml) SC SCH ×4 (00:29→18:44)
[2021-05-31 05:00] VITALS: BP 131/60
[2021-05-31 09:00] VITALS: BP 131/73
[2021-05-31 09:27] LABS: Hepatitis B Surface Antibody Negative
[2021-05-31 09:57] LABS: Hepatitis A Total Antibody Positive
[2021-05-31] MEDS: SACUBITRIL-VALSARTAN 24mg/26mg TAB PO SCH ×2 (10:25→22:33)
[2021-05-31] MEDS: PANTOPRAZOLE 40 MG/10 ML VIAL INJ IV SCH ×2 (10:25→22:32)
[2021-05-31] MEDS: ATORVASTATIN 20 MG TAB PO SCH (10:25)
[2021-05-31] MEDS: CARVEDILOL 12.5 MG TAB PO SCH ×2 (10:26→22:00)
[2021-05-31] MEDS: SODIUM CHLORIDE 0.9% 1,000 ML IV SCH (11:32)
[2021-05-31 13:00] VITALS: BP 122/54
[2021-05-31 15:13] LABS: Hepatitis B Core Total AB Negative; Hepatitis B Surface Antigen Negative (Negative); Hepatitis C Antibody Negative (Negative)
[2021-05-31 17:00] VITALS: BP 124/57
[2021-05-31 22:00] VITALS: BP 114/60
[2021-06-01] MEDS: ACCU-CHEK COMFORT CURVE STRIP VI SCH ×4 (00:13→16:44)
[2021-06-01] MEDS: InsuLIN REG 1unit/0.01ml Soln (100units/ml) SC SCH ×4 (00:14→16:44)
[2021-06-01] MEDS: SODIUM CHLORIDE 0.9% 1,000 ML IV SCH ×2 (00:55→16:35)
[2021-06-01 05:00] VITALS: BP 115/53
[2021-06-01 07:05] LABS: Basophils # (auto) 0 10 ^3/uL (0-0.2); Hemoglobin 7.7 g/dL (13.5-17.5); Lymphocytes # (auto) 0.4 10 ^3/uL (0.4-5.4); Monocytes # (auto) 0.6 10 ^3/uL (0-1.3); Neutrophils # (auto) 3.8 10 ^3/uL (1.6-8.6); Nucleated Red Blood Cells % 0.1 %
[2021-06-01 07:07] LABS: Basophils % (auto) 0.5 % (0.0-2.0); Eosinophils # (auto) 0.1 10 ^3/uL (0-0.8); Eosinophils % (auto) 2.8 % (0.0-7.0); Hematocrit 23.9 % (41.0-53.0); Lymphocytes % (auto) 8.4 % (10.0-50.0); Mean Corpuscular Hgb Conc. 32.2 g/dL (32.0-36.0); Mean Corpuscular Volume 71.2 fL (80.0-100.0); Monocytes % (auto) 12.1 % (0.0-12.0); Neutrophils % (auto) 76.2 % (37.0-80.0); Red Blood Cells 3.36 10^6/uL (4.5-5.90)
[2021-06-01 07:11] LABS: Red Cell Distribution Width 26.8 % (11.8-14.3)
[2021-06-01 07:18] LABS: Potassium 4.1 mmol/L (3.5-5.1)
[2021-06-01 07:29] LABS: Albumin 2.1 g/dL (3.4-5.0); BUN/Creatinine Ratio 14.8; Bilirubin, Total 0.8 mg/dL (0.2-1.0); Calcium 7.7 mg/dL (8.5-10.1); Magnesium 2.2 mg/dL (1.6-2.6)
[2021-06-01] MEDS: SACUBITRIL-VALSARTAN 24mg/26mg TAB PO SCH ×2 (10:10→22:09)
[2021-06-01] MEDS: PANTOPRAZOLE 40 MG/10 ML VIAL INJ IV SCH ×2 (10:10→22:06)
[2021-06-01] MEDS: ATORVASTATIN 20 MG TAB PO SCH (10:11)
[2021-06-01] MEDS: CARVEDILOL 12.5 MG TAB PO SCH ×2 (10:14→22:06)
[2021-06-01 13:00] VITALS: BP 149/66
[2021-06-01] MEDS ORDERED: CLINDAMYCIN 600MG IV 50 ML IV ONE (13:17)
[2021-06-01 17:03] VITALS: BP 135/43
[2021-06-01 22:00] VITALS: BP 125/73
[2021-06-02] MEDS: ACCU-CHEK COMFORT CURVE STRIP VI SCH ×5 (00:05→23:38)
[2021-06-02] MEDS: InsuLIN REG 1unit/0.01ml Soln (100units/ml) SC SCH ×5 (00:07→23:37)
[2021-06-02 05:00] VITALS: BP 105/35
[2021-06-02] MEDS: SODIUM CHLORIDE 0.9% 1,000 ML IV SCH ×3 (06:16→18:08)
[2021-06-02 09:00] VITALS: BP 138/60
[2021-06-02] MEDS: PANTOPRAZOLE 40 MG/10 ML VIAL INJ IV SCH ×2 (11:20→21:08)
[2021-06-02] MEDS: SACUBITRIL-VALSARTAN 24mg/26mg TAB PO SCH ×2 (11:21→21:08)
[2021-06-02] MEDS: ATORVASTATIN 20 MG TAB PO SCH (11:21)
[2021-06-02] MEDS: CARVEDILOL 12.5 MG TAB PO SCH ×2 (11:21→21:08)
[2021-06-02 13:00] VITALS: BP 124/68
[2021-06-02 16:00] VITALS: BP 120/57
[2021-06-02 20:46] LABS: Basophils # (auto) 0.1 10 ^3/uL (0-0.2); Eosinophils # (auto) 0.2 10 ^3/uL (0-0.8); Lymphocytes # (auto) 0.5 10 ^3/uL (0.4-5.4); Monocytes # (auto) 0.5 10 ^3/uL (0-1.3); Neutrophils % (auto) 78.1 % (37.0-80.0); Red Blood Cells 3.87 10^6/uL (4.5-5.90)
[2021-06-02 20:48] LABS: Basophils % (auto) 1.2 % (0.0-2.0); Eosinophils % (auto) 3.5 % (0.0-7.0); Hemoglobin 8.4 g/dL (13.5-17.5); Lymphocytes % (auto) 8.1 % (10.0-50.0); Mean Corpuscular Hemoglobin 21.7 pg (28.0-32.0); Mean Corpuscular Hgb Conc. 31.1 g/dL (32.0-36.0); Mean Corpuscular Volume 69.9 fL (80.0-100.0); Monocytes % (auto) 9.1 % (0.0-12.0); Neutrophils # (auto) 4.5 10 ^3/uL (1.6-8.6); Nucleated Red Blood Cells % 0.1 %; White Blood Cell 5.8 10^3/uL (4.4-10.8)
[2021-06-02 20:59] LABS: Red Cell Distribution Width 27.1 % (11.8-14.3)
[2021-06-02 21:06] LABS: Albumin 2.3 g/dL (3.4-5.0); Potassium 4.5 mmol/L (3.5-5.1)
[2021-06-02 21:10] LABS: BUN/Creatinine Ratio 20.3; Bilirubin, Total 0.8 mg/dL (0.2-1.0); Total Protein 5.6 g/dL (6.4-8.2)
[2021-06-02 22:00] VITALS: BP 138/64
[2021-06-03 05:00] VITALS: BP 135/61
[2021-06-03] MEDS: ACCU-CHEK COMFORT CURVE STRIP VI SCH ×4 (06:09→23:50)
[2021-06-03 06:10] LABS: White Blood Cell 5.2 10^3/uL (4.4-10.8)
[2021-06-03] MEDS: InsuLIN REG 1unit/0.01ml Soln (100units/ml) SC SCH ×4 (06:10→23:50)
[2021-06-03] MEDS: SODIUM CHLORIDE 0.9% 1,000 ML IV SCH (06:11)
[2021-06-03 06:13] LABS: Hematocrit 24.4 % (41.0-53.0); Hemoglobin 7.9 g/dL (13.5-17.5); Mean Corpuscular Hemoglobin 22.5 pg (28.0-32.0); Mean Corpuscular Hgb Conc. 32.5 g/dL (32.0-36.0); Mean Corpuscular Volume 69.4 fL (80.0-100.0); Red Blood Cells 3.51 10^6/uL (4.5-5.90)
[2021-06-03 06:26] LABS: Albumin 2.2 g/dL (3.4-5.0); Calcium 8.2 mg/dL (8.5-10.1); Potassium 4.4 mmol/L (3.5-5.1)
[2021-06-03 06:28] LABS: Basophils % (manual) 0 (0.0-2.0); Blast Cells 0; Metamyelocytes % 0; Promyelocytes % 0; Reactive Lymphocytes 0; Red Cell Distribution Width 26.9 % (11.8-14.3)
[2021-06-03 06:29] LABS: BUN/Creatinine Ratio 21.2; Bilirubin, Total 0.6 mg/dL (0.2-1.0); Total Protein 5.3 g/dL (6.4-8.2)
[2021-06-03 07:44] LABS: Band Neutrophils % (manual) 6; Eosinophils % (manual) 8 (0-7); Lymphocytes % (manual) 4 (10.0-50.0); Monocytes % (manual) 2 (0-12); Myelocytes % 1
[2021-06-03 08:00] VITALS: BP 140/66
[2021-06-03] MEDS ORDERED: PHYTONADIONE (VIT K)10 MG/ML 1ML VIAL SUBCUT ONE (09:15)
[2021-06-03] MEDS: SACUBITRIL-VALSARTAN 24mg/26mg TAB PO SCH ×2 (10:20→22:00)
[2021-06-03] MEDS: ATORVASTATIN 20 MG TAB PO SCH (10:20)
[2021-06-03] MEDS: PANTOPRAZOLE 40 MG/10 ML VIAL INJ IV SCH ×2 (10:21→22:00)
[2021-06-03] MEDS: CARVEDILOL 12.5 MG TAB PO SCH ×2 (10:21→22:00)
[2021-06-03 12:00] VITALS: BP 136/60
[2021-06-03 16:00] VITALS: BP 137/59
[2021-06-03] MEDS ORDERED: NICOTINE 21MG/24 HR TOPICAL PATCH TD SCH (17:00)
[2021-06-03 22:00] VITALS: BP 155/56
[2021-06-04 05:00] VITALS: BP 127/62
[2021-06-04] MEDS: InsuLIN REG 1unit/0.01ml Soln (100units/ml) SC SCH ×3 (06:00→18:15)
[2021-06-04] MEDS: ACCU-CHEK COMFORT CURVE STRIP VI SCH ×3 (06:00→18:00)
[2021-06-04 07:22] LABS: INR 1.19 (0.9-1.15); Partial Thromboplastin Time 30.5 sec (23.6-33.0)
[2021-06-04 09:00] VITALS: BP 129/61
[2021-06-04] MEDS ORDERED: LIDOCAINE 2%HCL (LOCAL ANESTH.) INJ 20ML MDV ONE (09:28)
[2021-06-04] MEDS ORDERED: IODIXANOL 320MG/ML 100ML BTL IV ONE (09:28)
[2021-06-04] MEDS ORDERED: HEPARIN IN NS 1000Units/500mL 1,500 ML ONE (09:28)
[2021-06-04] MEDS ORDERED: ANGIOMAX 250 MG VIAL IV ONE (09:32)
[2021-06-04] MEDS ORDERED: fentaNYL CITRATE 100 MCG/2 ML VL ONE (09:32)
[2021-06-04] MEDS ORDERED: MIDAZOLAM HCL 2MG/2ML 2ml VIAL (1mg/ml) ONE (09:33)
[2021-06-04] MEDS ORDERED: SODIUM CHL 0.9% 50 ML ONE (09:33)
[2021-06-04] MEDS: PANTOPRAZOLE 40 MG/10 ML VIAL INJ IV SCH ×2 (09:51→22:00)
[2021-06-04] MEDS: SACUBITRIL-VALSARTAN 24mg/26mg TAB PO SCH ×2 (09:52→22:00)
[2021-06-04] MEDS: CARVEDILOL 12.5 MG TAB PO SCH ×2 (09:52→22:00)
[2021-06-04] MEDS: ATORVASTATIN 20 MG TAB PO SCH (09:52)
[2021-06-04] MEDS ORDERED: VERAPAMIL 2.5MG/ML INJ 2ML VIAL IV ONE (10:09)
[2021-06-04] MEDS ORDERED: ASPirin 325 MG TAB ONE (10:32)
[2021-06-04 15:55] VITALS: BP 129/67
[2021-06-04 17:00] VITALS: BP 127/53
[2021-06-04 21:55] VITALS: BP 135/56
[2021-06-05] MEDS: ACCU-CHEK COMFORT CURVE STRIP VI SCH ×4 (05:28→18:19)
[2021-06-05 05:30] VITALS: BP 147/76
[2021-06-05] MEDS: InsuLIN REG 1unit/0.01ml Soln (100units/ml) SC SCH ×4 (06:00→18:19)
[2021-06-05] MEDS: ATORVASTATIN 20 MG TAB PO SCH (08:34)
[2021-06-05] MEDS: PANTOPRAZOLE 40 MG/10 ML VIAL INJ IV SCH ×2 (08:34→22:18)
[2021-06-05] MEDS: CARVEDILOL 12.5 MG TAB PO SCH ×2 (08:35→22:18)
[2021-06-05] MEDS: SACUBITRIL-VALSARTAN 24mg/26mg TAB PO SCH ×2 (08:35→22:18)
[2021-06-05 08:58] LABS: Basophils # (auto) 0.1 10 ^3/uL (0-0.2); Eosinophils # (auto) 0.3 10 ^3/uL (0-0.8); Hematocrit 27.5 % (41.0-53.0); Hemoglobin 8.8 g/dL (13.5-17.5); Lymphocytes # (auto) 0.5 10 ^3/uL (0.4-5.4); Mean Corpuscular Hgb Conc. 31.9 g/dL (32.0-36.0); Monocytes # (auto) 0.5 10 ^3/uL (0-1.3)
[2021-06-05 09:00] VITALS: BP 161/63
[2021-06-05 09:00] LABS: Basophils % (auto) 1.5 % (0.0-2.0); Eosinophils % (auto) 4.3 % (0.0-7.0); Lymphocytes % (auto) 7.6 % (10.0-50.0); Mean Corpuscular Hemoglobin 22.5 pg (28.0-32.0); Mean Corpuscular Volume 70.4 fL (80.0-100.0); Monocytes % (auto) 8.9 % (0.0-12.0); Neutrophils # (auto) 4.6 10 ^3/uL (1.6-8.6); Neutrophils % (auto) 77.7 % (37.0-80.0); Red Blood Cells 3.91 10^6/uL (4.5-5.90)
[2021-06-05 09:02] LABS: Red Cell Distribution Width 26.8 % (11.8-14.3)
[2021-06-05 09:16] LABS: Albumin 2.4 g/dL (3.4-5.0); Calcium 8.2 mg/dL (8.5-10.1); Potassium 4.5 mmol/L (3.5-5.1)
[2021-06-05 09:20] LABS: BUN/Creatinine Ratio 19.3; Bilirubin, Total 0.8 mg/dL (0.2-1.0); Total Protein 5.8 g/dL (6.4-8.2)
[2021-06-05 13:00] VITALS: BP 131/54
[2021-06-05 17:00] VITALS: BP 124/48
[2021-06-05 22:00] VITALS: BP 122/61
[2021-06-06] MEDS: ACCU-CHEK COMFORT CURVE STRIP VI SCH ×3 (00:50→11:47)
[2021-06-06] MEDS: InsuLIN REG 1unit/0.01ml Soln (100units/ml) SC SCH ×3 (00:54→11:47)
[2021-06-06 05:00] VITALS: BP 126/58
[2021-06-06 09:00] VITALS: BP 154/67
[2021-06-06] MEDS: PANTOPRAZOLE 40 MG/10 ML VIAL INJ IV SCH (09:40)
[2021-06-06] MEDS: SACUBITRIL-VALSARTAN 24mg/26mg TAB PO SCH (09:40)
[2021-06-06] MEDS: CARVEDILOL 12.5 MG TAB PO SCH (09:41)
[2021-06-06] MEDS: ATORVASTATIN 20 MG TAB PO SCH (09:41)
[2021-06-06 12:57] VITALS: BP 134/66
[2021-06-06 15:28] VITALS: BP 135/67
[2021-06-06 17:00] VITALS: BP 129/63
== END 2021-06-06 17:40 | disposition home health service (06) | DRG 270 ==
LOC: EDBD 21:21 → ER 21:24 → TELE 05-27 01:43 → TELE-CENTR 05-27 11:17
PROVIDERS: ADMIT Internal Medicine; ATTEND Internal Medicine
PROC: 30233N1 Transfusion of Nonautologous Red Blood Cells into Peripheral Vein, Percutaneous Approach (ICD-10-PCS; 2021-05-27)
PROC: 0W993ZZ Drainage of Right Pleural Cavity, Percutaneous Approach (ICD-10-PCS; 2021-05-28)
PROC: 0DB68ZX Excision of Stomach, Via Natural or Artificial Opening Endoscopic, Diagnostic (ICD-10-PCS; 2021-05-30)
PROC: 0DB88ZX Excision of Small Intestine, Via Natural or Artificial Opening Endoscopic, Diagnostic (ICD-10-PCS; 2021-05-30)
PROC: 047K3ZZ Dilation of Right Femoral Artery, Percutaneous Approach (ICD-10-PCS; principal; 2021-06-04)
PROC: 04CK3ZZ Extirpation of Matter from Right Femoral Artery, Percutaneous Approach (ICD-10-PCS; 2021-06-04)
PROC: B41GYZZ Fluoroscopy of Left Lower Extremity Arteries using Other Contrast (ICD-10-PCS; 2021-06-04)
PROC: B41FYZZ Fluoroscopy of Right Lower Extremity Arteries using Other Contrast (ICD-10-PCS; 2021-06-04)
DX: E11.51 Type 2 diabetes mellitus with diabetic peripheral angiopathy without gangrene (principal); J96.01 Acute respiratory failure with hypoxia; N17.0 Acute kidney failure with tubular necrosis; I50.43 Acute on chronic combined systolic (congestive) and diastolic (congestive) heart failure; I13.0 Hypertensive heart and chronic kidney disease with heart failure and stage 1 through stage 4 chronic kidney disease, or unspecified chronic kidney disease; R18.8 Other ascites; J98.11 Atelectasis; J91.8 Pleural effusion in other conditions classified elsewhere; K29.70 Gastritis, unspecified, without bleeding; K74.60 Unspecified cirrhosis of liver; R00.1 Bradycardia, unspecified; E83.51 Hypocalcemia; R29.6 Repeated falls; E11.65 Type 2 diabetes mellitus with hyperglycemia; I25.10 Atherosclerotic heart disease of native coronary artery without angina pectoris; I25.5 Ischemic cardiomyopathy; K80.20 Calculus of gallbladder without cholecystitis without obstruction; E11.22 Type 2 diabetes mellitus with diabetic chronic kidney disease; D64.9 Anemia, unspecified; E78.5 Hyperlipidemia, unspecified; I48.0 Paroxysmal atrial fibrillation; K21.9 Gastro-esophageal reflux disease without esophagitis; K44.9 Diaphragmatic hernia without obstruction or gangrene; N18.9 Chronic kidney disease, unspecified; Z20.822 Contact with and (suspected) exposure to COVID-19; Z79.01 Long term (current) use of anticoagulants; Z79.84 Long term (current) use of oral hypoglycemic drugs; Z91.81 History of falling; Z79.899 Other long term (current) drug therapy; Z82.49 Family history of ischemic heart disease and other diseases of the circulatory system; Z83.3 Family history of diabetes mellitus; Z87.891 Personal history of nicotine dependence; Z95.1 Presence of aortocoronary bypass graft; Z95.5 Presence of coronary angioplasty implant and graft
CPT/HCPCS: 36415; 37225; 43239; 70450; 71045; 71250; 74176; 75716; 76604; 76942; 80053; 80061; 81001; 82040; 82043; 82105; 82140; 82270; 82378; 82570; 82607; 82668; 82728; 82746; 82962; 83010; 83036; 83540; 83550; 83615; 83735; 83880; 84100; 84156; 84439; 84443; 84484; 85007; 85025; 85027; 85045; 85379; 85610; 85652; 85730; 86301; 86704; 86706; 86708; 86803; 86850; 86880; 86900; 86901; 86920; 87205; 87340; 87426; 89051; 93005; 93306; 93925; 96374; 97116; 97163; 97530; 99152; 99291; C1724; C9113; G0378; J1815; J2250; J3430; J3490; Q9967

== ENCOUNTER 2024-10-01 16:47 | Inpatient (IN) | payer MEDICARE ==
[~2024-10-01] VITALS: Ht 180.3 cm; Wt 67.0 kg
[~2024-10-01 16:47] MED LIST changes: +FERR1TAB31 PO; -FERR27TA2 PO
[2024-10-01] MEDS ORDERED: MORPHINE SULFATE INJ 2 MG/ml SYRG IV PRN (17:15)
[2024-10-01] MEDS ORDERED: NITROGLYCERIN 0.4 MG SL TAB SL PRN (17:15)
[2024-10-01 17:30] VITALS: BP 153/41; PULSE 61; RESP 16; TEMP 96.9; O2SAT 99
[2024-10-01 18:07] LABS: Basophils # (auto) 0 10 ^3/uL (0-0.2); Eosinophils # (auto) 0.2 10 ^3/uL (0-0.8); Hemoglobin 7.8 g/dL (13.5-17.5); Lymphocytes # (auto) 0.5 10 ^3/uL (0.4-5.4); Nucleated Red Blood Cells % 0.2 %; Platelet Count (auto) 164 10^3/uL (140-450)
[2024-10-01 18:10] LABS: Basophils % (auto) 0.5 % (0.0-2.0); Eosinophils % (auto) 2.9 % (0.0-7.0); Hematocrit 26.1 % (41.0-53.0); Lymphocytes % (auto) 8.2 % (10.0-50.0); Mean Corpuscular Hemoglobin 20.9 pg (28.0-32.0); Mean Corpuscular Hgb Conc. 30.1 g/dL (32.0-36.0); Mean Corpuscular Volume 69.4 fL (80.0-100.0); Monocytes # (auto) 0.6 10 ^3/uL (0-1.3); Monocytes % (auto) 10.4 % (0.0-12.0); Neutrophils # (auto) 4.4 10 ^3/uL (1.6-8.6); Red Blood Cells 3.76 10^6/uL (4.5-5.90); Red Cell Distribution Width 19.1 % (11.8-14.3); White Blood Cell 5.7 10^3/uL (4.4-10.8)
[2024-10-01 18:12] LABS: Alanine Aminotransferase 20 U/L (7-40); Albumin 4.6 g/dL (3.2-4.8); Alkaline Phosphatase 80 U/L (46-116); Anion Gap 8 (5-15); BUN/Creatinine Ratio 22.7 (10.0-20.0); Bilirubin, Total 1.2 mg/dL (0.2-1.0); Calcium 9.7 mg/dL (8.7-10.4); Carbon Dioxide 22 mmol/L (20-31); Chloride 105 mmol/L (98-107); Potassium 4.9 mmol/L (3.5-5.1); Total Protein 7.4 g/dL (5.7-8.2)
[2024-10-01 18:16] LABS: Aspartate Aminotransferase 11 U/L (13-40); Blood Urea Nitrogen 48 mg/dL (9-23); Glucose 281 mg/dL (74-106); Sodium 135 mmol/L (136-145)
[2024-10-01] MEDS ORDERED: ATOR20TA50 (19:02)
[2024-10-01] MEDS ORDERED: FURO20TA4 PO (19:02)
[2024-10-01] MEDS ORDERED: LEVO25TA6 PO (19:02)
[2024-10-01] MEDS ORDERED: APIX2.5T PO (19:02)
[2024-10-01] MEDS ORDERED: PANT40T PO (19:02)
[2024-10-01] MEDS ORDERED: SACU1TAB7 PO (19:02)
[2024-10-01] MEDS ORDERED: EMPA1TAB3 PO (19:02)
[2024-10-01] MEDS ORDERED: CLOP75TA70 PO (19:02)
[2024-10-01 20:00] VITALS: PULSE 63
[2024-10-01 21:00] VITALS: BP 151/52; PULSE 61; RESP 17; TEMP 98.9; O2SAT 100
[2024-10-01 21:19] VITALS: BP 151/52; PULSE 61; RESP 17; TEMP 98.9; O2SAT 100
--- NOTE | 2024-10-01 22:49 | DVHINCON2 ---
Date of service: Oct 01, 2024 Referring Physician Jayden Reason for Consultation History of PTCA on blood thinners History of Present Illness This is an 79 year old male with a PMH of CAD, CHF, DM, High Lipids, HTN, PTCA on blood thinners and anemia who was referred to the hospital by Dr. Sydni Carpenter for admission. Patient denies any current complaints. HGB 7.8, HCT 26.1, BUN 48, Customer Program Specialist 2.11, GLUC 281. I am asked to consult on this patient. Family History: Diabetes mellitus Smoking G8 FATHER Allergies: Coded Allergies: NO KNOWN ALLERGIES (Unverified , 06/04/21) Home Meds Reported Medications Furosemide (Furosemide) 20 Mg Tab, TAB PO 10/01/24 Pantoprazole Sodium Sesquihydr (Pantoprazole Sodium) 40 Mg Tab, 1 TAB PO DAILY 10/01/24 Clopidogrel Bisulfate (CLOPIDOGREL) 75 Mg Tab, 1 TAB PO DAILY 10/01/24 Levothyroxine Sodium (Levothyroxine Sodium) 25 Mcg Tab, 1 TAB PO DAILY 10/01/24 Empagliflozin (Jardiance) 25 Mg Tab, 1 TAB PO DAILY 10/01/24 Atorvastatin Calcium (ATORVASTATIN CALCIUM) 20 Mg Tab, 20 MG 10/01/24 Apixaban Base (ELIQUIS) 2.5 Mg Tab, 1 TAB PO BID 10/01/24 Sacubitril-Valsartan (Entresto 49-51 mg) 1 Tab Tab, 1 TAB PO BID 10/01/24 Ferrous Gluconate (IRON) 27 Mg Tab, 27 MG PO DAILY, TAB 12/31/20 Carvedilol (Carvedilol) 25 Mg Tab, 25 MG PO BID 12/31/20 Glipizide (Glipizide) 10 Mg Tab, 1 TAB PO DAILY 30 minutes before breakfast 12/31/20 Current Medications Current Medications Medications (Trade) Dose Ordered Sig/Erasto Route PRN Reason Start Time Stop Time Status Last Admin Nitroglycerin (Ntrostat Sublingual) 0.4 mg Q5MINP PRN SL FOR CHEST PAIN 10/01/24 17:15 UNV Morphine Sulfate 2 mg Q30M PRN IV FOR CHEST PAIN 10/01/24 17:15 UNV Pantoprazole Sodium (Protonix) 40 mg DAILY IV 10/02/24 10:00 UNV Review of Systems As per HPI. Vital Signs Vital Signs Date Time Temp Pulse Resp B/P (MAP) Pulse Ox O2 Delivery O2 Flow Rate FiO2 10/01/24 17:30 96.9 61 16 153/41 (78) 99 96.9 Physical Exam GENERAL: Awake, alert, oriented. LUNGS: Clear. CARDIOVASCULAR: Heart sounds are good. ABDOMEN: Soft. Labs/Diagnostic Data Labs Test 10/01/24 17:36 Range/Units Assessment Acute on chronic iron deficiency anemia. CAD. CHF. DM. HLD. HTN. History of PTCA on blood thinners. Plan/Recommendation I agree with your ongoing assessment and care of plan. Morphine for pain management. Nitro SL. GI prophylactics. Additional plan as per the hospital course. A total of 45 minutes was spent reviewing the patient record, examining the patient, making a diagnostic and therapeutic plan, discussing this plan with medical personnel, following up on diagnostic studies and following the patient for clinical stability excluding any and all procedures. At least 50% of this time was spent in direct, [id number] contact. Plan discussed with: Patient LENORE ABRAHAM MD Oct 01, 2024 17:52
[2024-10-02] VITALS (14 sets, daily range): BP systolic 136–167; BP diastolic 50–94; PULSE 57–82; RESP 14–19; TEMP 97.6–98.8; O2SAT 97–99
[2024-10-02 05:20] LABS: Basophils # (auto) 0 10 ^3/uL (0-0.2); Basophils % (auto) 0.7 % (0.0-2.0); Eosinophils # (auto) 0.2 10 ^3/uL (0-0.8); Hematocrit 24.2 % (41.0-53.0); Lymphocytes # (auto) 0.5 10 ^3/uL (0.4-5.4); Monocytes # (auto) 0.7 10 ^3/uL (0-1.3); Nucleated Red Blood Cells % 0.2 %; Red Blood Cells 3.61 10^6/uL (4.5-5.90); White Blood Cell 5.8 10^3/uL (4.4-10.8)
[2024-10-02 05:23] LABS: Eosinophils % (auto) 3.6 % (0.0-7.0); Hemoglobin 7.3 g/dL (13.5-17.5); Mean Corpuscular Hemoglobin 20.3 pg (28.0-32.0); Mean Corpuscular Hgb Conc. 30.2 g/dL (32.0-36.0); Mean Corpuscular Volume 67.1 fL (80.0-100.0); Monocytes % (auto) 11.4 % (0.0-12.0); Neutrophils # (auto) 4.4 10 ^3/uL (1.6-8.6); Neutrophils % (auto) 75.3 % (37.0-80.0); Platelet Count (auto) 142 10^3/uL (140-450); Red Cell Distribution Width 18.9 % (11.8-14.3)
[2024-10-02 05:40] LABS: Alanine Aminotransferase 16 U/L (7-40); Albumin 4.4 g/dL (3.2-4.8); Alkaline Phosphatase 69 U/L (46-116); Anion Gap 5 (5-15); BUN/Creatinine Ratio 25.3 (10.0-20.0); Calcium 9.9 mg/dL (8.7-10.4); Carbon Dioxide 24 mmol/L (20-31); Potassium 5.1 mmol/L (3.5-5.1); Sodium 137 mmol/L (136-145); Total Protein 6.9 g/dL (5.7-8.2)
[2024-10-02 06:01] LABS: Blood Urea Nitrogen 49 mg/dL (9-23); Chloride 108 mmol/L (98-107); Glucose 233 mg/dL (74-106)
[2024-10-02] MEDS: FUROSEMIDE 20 MG/2 ML VIAL IV ONE ×2 (06:16→09:16)
[2024-10-02 06:22] LABS: Aspartate Aminotransferase < 8 U/L (13-40)
[2024-10-02] MEDS: PANTOPRAZOLE 40 MG/10 ML VIAL INJ IV SCH (09:13)
[2024-10-02 09:46] LABS: Anisocytosis Slight; Hypochromia Moderate; Ovalocytes FEW; Platelet Estimate Adequate
[2024-10-02 10:06] LABS: Hematocrit 28.5 % (41.0-53.0); Hemoglobin 8.6 g/dL (13.5-17.5)
--- NOTE | 2024-10-02 16:43 | DVHPN2 ---
Progress Note - Dictate Date Seen: Oct 02, 2024 Medical Necessity Reason Pt with a Central, PICC or Fol: No Subjective Patient was seen and evaluated in follow up. Patient denies any pain or discomfort. Patient is s/p PRBC transfusion. HGB 8.6, HCT 28.5, BUN 49, COST ENGINEER 1.94, GLUC 233. vital signs Vital Sign Date Time Temp Pulse Resp B/P (MAP) Pulse Ox O2 Delivery O2 Flow Rate FiO2 10/02/24 12:50 98.0 66 14 141/71 (94) 99 98.0 10/02/24 07:31 Room Air* 0 21 Total Intake and Output 10/01/24 10/01/24 10/02/24 15:00 23:00 07:00 Intake Total 0 ml 300 ml Output Total 0 ml 1000 ml Balance 0 ml -700 ml medications Current Medications Medications Dose Ordered Sig/Erasto Route Start Time Stop Time Status Last Admin Dose Admin Nitroglycerin 0.4 mg Q5MINP PRN SL 10/01/24 17:15 Morphine Sulfate 2 mg Q30M PRN IV 10/01/24 17:15 Pantoprazole Sodium 40 mg DAILY IV 10/02/24 10:00 10/02/24 09:13 40 MG objective GENERAL: Awake, alert, oriented. LUNGS: Clear. CARDIOVASCULAR: Heart sounds are good. ABDOMEN: Soft. laboratory and microbiology Laboratory Tests 10/02/24 09:31 10/02/24 04:42 Test 10/02/24 04:42 Range/Units Serum Glucose 233 H 74-106 mg/dL Problem List Acute on chronic iron deficiency anemia. CAD. CHF. DM. HLD. HTN. History of PTCA on blood thinners. Assessment/Plan Continued all current supportive medical care. Morphine for pain management. Diuretics with Lasix. GI prophylactics. Additional plan as per the hospital course. Plan discussed with: Patient LENORE ABRAHAM MD Oct 02, 2024 14:23
--- NOTE | 2024-10-02 21:52 | DVHINCON2 ---
Date of service: Oct 02, [address] green Reason for Consultation Microcytic anemia History of Present Illness This is an 79 year old male with a PMH of CAD, CHF, DM, High Lipids, HTN, PTCA on blood thinners and anemia who was referred to the hospital by Dr. Sydni Green for admission. Patient denies any current complaints. HGB 7.8, HCT 26.1, BUN 48, Winding Operator 2.11, GLUC 281. I am asked to consult on this patient for further evaluation and management of his anemia. Patient's hemoglobin was 7.3 and he received 1 unit PRBC with a repeat hemoglobin of 8.6. Patient was hospitalized in May of 2021 with similar complaints of anemia and melena. Endoscopy at that time had shown a small hiatal hernia and mild gastritis without any active bleeding. Past Medical History CVA, congestive heart failure, coronary artery disease Cirrhosis and ascites on CT in 2020 Past Surgical History Coronary artery bypass grafting PTCA Family History: Diabetes mellitus MOTHER FH: Parkinson's disease BROTHER FH: emphysema G8 MOTHER FH: hepatic cirrhosis G8 MOTHER Smoking G8 FATHER Allergies: Coded Allergies: NO KNOWN ALLERGIES (Unverified , 06/04/21) Home Meds Reported Medications Furosemide (Furosemide) 20 Mg Tab, TAB PO 10/01/24 Pantoprazole Sodium Sesquihydr (Pantoprazole Sodium) 40 Mg Tab, 1 TAB PO DAILY 10/01/24 Clopidogrel Bisulfate (CLOPIDOGREL) 75 Mg Tab, 1 TAB PO DAILY 10/01/24 Levothyroxine Sodium (Levothyroxine Sodium) 25 Mcg Tab, 1 TAB PO DAILY 10/01/24 Empagliflozin (Jardiance) 25 Mg Tab, 1 TAB PO DAILY 10/01/24 Atorvastatin Calcium (ATORVASTATIN CALCIUM) 20 Mg Tab, 20 MG 10/01/24 Apixaban Base (ELIQUIS) 2.5 Mg Tab, 1 TAB PO BID 10/01/24 Sacubitril-Valsartan (Entresto 49-51 mg) 1 Tab Tab, 1 TAB PO BID 10/01/24 Ferrous Gluconate (IRON) 27 Mg Tab, 27 MG PO DAILY, TAB 12/31/20 Carvedilol (Carvedilol) 25 Mg Tab, 25 MG PO BID 12/31/20 Glipizide (Glipizide) 10 Mg Tab, 1 TAB PO DAILY 30 minutes before breakfast 12/31/20 Current Medications Current Medications Medications (Trade) Dose Ordered Sig/Erasto Route PRN Reason Start Time Stop Time Status Last Admin Pantoprazole Sodium (Protonix) 40 mg DAILY IV 10/02/24 10:00 10/02/24 09:13 Vital Signs Vital Signs Date Time Temp Pulse Resp B/P (MAP) Pulse Ox O2 Delivery O2 Flow Rate FiO2 10/02/24 21:39 98.8 70 18 136/54 (81) 97 98.8 10/02/24 20:00 Room Air* 0 21 Physical Exam GENERAL: Awake, alert, oriented. LUNGS: Clear. CARDIOVASCULAR: Heart sounds are good. ABDOMEN: Soft. Labs/Diagnostic Data Labs Test 10/02/24 09:31 10/02/24 04:42 10/01/24 17:36 Range/Units Hemoglobin 8.6 #L 13.5-17.5 g/dL Hematocrit 28.5 #L 41.0-53.0 % White Blood Count 5.8 4.4-10.8 10^3/uL Red Blood Count 3.61 L 4.5-5.90 10^6/uL Mean Corpuscular Volume 67.1 L 80.0-100.0 fL Mean Corpuscular Hemoglobin 20.3 L 28.0-32.0 pg Mean Corpuscular Hemoglobin Concent 30.2 L 32.0-36.0 g/dL Red Cell Distribution Width 18.9 H 11.8-14.3 % Platelet Count 142 140-450 10^3/uL Mean Platelet Volume 8.6 6.9-10.8 fL Neutrophils (%) (Auto) 75.3 37.0-80.0 % Lymphocytes (%) (Auto) 9.0 L 10.0-50.0 % Monocytes (%) (Auto) 11.4 0.0-12.0 % Eosinophils (%) (Auto) 3.6 0.0-7.0 % Basophils (%) (Auto) 0.7 0.0-2.0 % Neutrophils # (Auto) 4.4 1.6-8.6 10 ^3/uL Lymphocytes # (Auto) 0.5 0.4-5.4 10 ^3/uL Monocytes # (Auto) 0.7 0-1.3 10 ^3/uL Eosinophils # (Auto) 0.2 0-0.8 10 ^3/uL Basophils # (Auto) 0 0-0.2 10 ^3/uL Nucleated Red Blood Cells 0.2 % Platelet Estimate Adequate Hypochromasia (manual) Moderate Anisocytosis (manual) Slight Microcytosis Moderate Ovalocytes Few Sodium Level 137 136-145 mmol/L Potassium Level 5.1 3.5-5.1 mmol/L Chloride Level 108 H 98-107 mmol/L Carbon Dioxide Level 24 20-31 mmol/L Anion Gap 5 5-15 Blood Urea Nitrogen 49 H 9-23 mg/dL Creatinine 1.94 H 0.700-1.30 mg/dL Glomerular Filtration Rate Calc 34 >90 mL/min BUN/Creatinine Ratio 25.3 H 10.0-20.0 Serum Glucose 233 H 74-106 mg/dL Calcium Level 9.9 8.7-10.4 mg/dL Total Bilirubin 1.0 0.2-1.0 mg/dL Aspartate Amino Transferase (AST) < 8 L 13-40 U/L Alanine Aminotransferase (ALT) 16 7-40 U/L Alkaline Phosphatase 69 46-116 U/L Total Protein 6.9 5.7-8.2 g/dL Albumin 4.4 3.2-4.8 g/dL Reticulocyte Count (auto) 2.52 H 0.5-1.5 % CXR IMPRESSION: Cardiomegaly. Prominent bilateral perihilar opacities suggesting edema or infection. Problems(with codes): (1) Atrial fibrillation with RVR (2) Ascites (3) Cirrhosis (4) Cholelithiasis (5) Systolic and diastolic CHF, acute on chronic (6) GI bleed (7) Anemia (8) Dizziness Plan/Recommendation Plan Initial workup in 2020 had shown negative hepatitis and normal ferritin EGD had showed no varices at that time Protonix 40 mg IV daily Monitor labs, serial H and H Hold blood thinners Check stool for occult blood and iron panel and next consider colonoscopy if not recently done after the patient is medically optimized and cleared Prognosis remains guarded I will follow up patient with you Repeat CT of the abdomen pelvis or ultrasound Plan discussed with: Other (None) TONY HOPPER MD Oct 02, 2024 21:52
[2024-10-03] VITALS (8 sets, daily range): BP systolic 99–138; BP diastolic 48–74; PULSE 56–93; RESP 14–18; TEMP 97.4–98.4; O2SAT 93–98
[2024-10-03 08:57] LABS: Basophils # (auto) 0 10 ^3/uL (0-0.2); Eosinophils # (auto) 0.2 10 ^3/uL (0-0.8); Lymphocytes # (auto) 0.5 10 ^3/uL (0.4-5.4); Monocytes # (auto) 0.5 10 ^3/uL (0-1.3); Neutrophils # (auto) 3.9 10 ^3/uL (1.6-8.6); White Blood Cell 5.2 10^3/uL (4.4-10.8)
[2024-10-03 09:00] LABS: Basophils % (auto) 0.7 % (0.0-2.0); Eosinophils % (auto) 4.3 % (0.0-7.0); Hematocrit 27.6 % (41.0-53.0); Hemoglobin 8.5 g/dL (13.5-17.5); Lymphocytes % (auto) 9.2 % (10.0-50.0); Mean Corpuscular Hemoglobin 21.5 pg (28.0-32.0); Mean Corpuscular Hgb Conc. 30.6 g/dL (32.0-36.0); Mean Corpuscular Volume 70.1 fL (80.0-100.0); Monocytes % (auto) 10.3 % (0.0-12.0); Neutrophils % (auto) 75.5 % (37.0-80.0); Nucleated Red Blood Cells % 0.3 %; Platelet Count (auto) 130 10^3/uL (140-450); Red Blood Cells 3.94 10^6/uL (4.5-5.90); Red Cell Distribution Width 20.4 % (11.8-14.3)
[2024-10-03 09:02] LABS: % Iron Saturation 7.1 % (20-55)
--- NOTE | 2024-10-03 10:26 | DVH ---
INDICATION: anemia cirrhosis TECHNIQUE: Multiple real-time sonographic images of the abdomen were obtained. COMPARISON: None FINDINGS: Liver is heterogeneous and nodular in echogenicity. The liver measures 13 cm. No intrahepatic biliary ductal dilatation is noted. The gallbladder wall measures 0.2 cm and is unremarkable. Cholelithiasis. No pericholecystic flui d or edema. The common duct measures 0.4 cm and is unremarkable. The right kidney measures 9.8 cm. No hydronephrosis. The left kidney measures 10.3 cm. No hydronephro sis. Left renal midpole cyst measures 1.1 cm. The spleen measures 13 cm, within normal limits. The echogenicity is within normal limits. Trace perihepatic ascites. The pancreas is not well visualized due to obscuration from bowel gas. The visualized portions of the IVC and aorta are grossly unremarkable. IMPRESSION: Hepatic cirrhosis.
--- NOTE | 2024-10-03 14:48 | DVHPN2 ---
Progress Note - Dictate Date Seen: Oct 03, 2024 Medical Necessity Reason Pt with a Central, PICC or Fol: No Subjective No new complaints No active bleeding No BM ; stool occult blood pending vital signs Vital Sign Date Time Temp Pulse Resp B/P (MAP) Pulse Ox O2 Delivery O2 Flow Rate FiO2 10/03/24 12:41 97.4 74 14 99/48 (65) 97 97.4 10/03/24 07:30 Room Air* 0 21 Total Intake and Output 10/02/24 10/02/24 10/03/24 15:00 23:00 07:00 Intake Total 600 ml 420 ml 300 ml Output Total 600 ml 800 ml Balance 600 ml -180 ml -500 ml medications Current Medications Medications Dose Ordered Sig/Erasto Route Start Time Stop Time Status Last Admin Dose Admin Nitroglycerin 0.4 mg Q5MINP PRN SL 10/01/24 17:15 Morphine Sulfate 2 mg Q30M PRN IV 10/01/24 17:15 Pantoprazole Sodium 40 mg DAILY IV 10/02/24 10:00 10/03/24 08:32 40 MG objective GENERAL: Awake, alert, oriented. LUNGS: Clear. CARDIOVASCULAR: Heart sounds are good. ABDOMEN: Soft. laboratory and microbiology Laboratory Tests 10/03/24 06:40 10/02/24 04:42 Test 10/02/24 04:42 Range/Units Serum Glucose 233 H 74-106 mg/dL Problems(with codes): (1) Atrial fibrillation with RVR (2) Systolic and diastolic CHF, acute on chronic (3) GI bleed (4) Cirrhosis (5) Ascites (6) Anemia Prognosis Plan NPO after midnight Possible EGD on 10/04/2024 if cardiac cleared Check echo results Continue Protonix 40 mg IV daily Check CEA Stool softeners Possible colonoscopy on 10/05 if the patient is stable Continue to hold blood thinners Plan discussed with: Other (Nurse Egan) TONY HOPPER MD Oct 03, 2024 14:48
--- NOTE | 2024-10-03 16:06 | DVHPN2 ---
Progress Note - Dictate Date Seen: Oct 03, 2024 Medical Necessity Reason Pt with a Central, PICC or Fol: No Subjective Patient was seen and evaluated in follow up. No new complaints. No BM, stool occult blood pending. HGB 8.5, HCT 27.6. Abdominal US shows hepatic cirrhosis. vital signs Vital Sign Date Time Temp Pulse Resp B/P (MAP) Pulse Ox O2 Delivery O2 Flow Rate FiO2 10/03/24 12:41 97.4 74 14 99/48 (65) 97 97.4 10/03/24 07:30 Room Air* 0 21 Total Intake and Output 10/02/24 10/02/24 10/03/24 15:00 23:00 07:00 Intake Total 600 ml 420 ml 300 ml Output Total 600 ml 800 ml Balance 600 ml -180 ml -500 ml medications Current Medications Medications Dose Ordered Sig/Erasto Route Start Time Stop Time Status Last Admin Dose Admin Nitroglycerin 0.4 mg Q5MINP PRN SL 10/01/24 17:15 Morphine Sulfate 2 mg Q30M PRN IV 10/01/24 17:15 Pantoprazole Sodium 40 mg DAILY IV 10/02/24 10:00 10/03/24 08:32 40 MG objective GENERAL: Awake, alert, oriented. LUNGS: Clear. CARDIOVASCULAR: Heart sounds are good. ABDOMEN: Soft. laboratory and microbiology Laboratory Tests 10/03/24 06:40 10/02/24 04:42 Test 10/02/24 04:42 Range/Units Serum Glucose 233 H 74-106 mg/dL Problem List Acute on chronic iron deficiency anemia. CAD. CHF. DM. HLD. HTN. History of PTCA on blood thinners. Assessment/Plan Continued all current supportive medical care. Morphine for pain management. Diuretics with Lasix. GI prophylactics. Additional plan as per the hospital course. Plan discussed with: Patient LENORE ABRAHAM MD Oct 03, 2024 13:49
[2024-10-04] VITALS (10 sets, daily range): BP systolic 124–168; BP diastolic 50–72; PULSE 58–117; RESP 12–24; TEMP 97.1–98.5; O2SAT 87–100
[2024-10-04] MEDS ORDERED: SODIUM CHLORIDE LOCK 10 ML ONE (08:12)
[2024-10-04] MEDS: LIDOCAINE VISCOUS 2% 15ML UD ONE (10:39)
[2024-10-04] MEDS: diphenhdrAMINE HCL 50 MG/1 ML VL ONE (10:40)
[2024-10-04] MEDS: MIDAZOLAM HCL 5 MG/ML-1ML VIAL ONE (10:40)
[2024-10-04] MEDS: fentaNYL CITRATE 100 MCG/2 ML VL ONE (10:40)
--- NOTE | 2024-10-04 10:54 | DVHOP2 ---
Operative Report DATE OF OPERATION: 10/04/24 PROCEDURE: Upper Endoscopy with biopsy. PREOPERATIVE INDICATION: The patient is a 79 -year-old male undergoing endoscopy for severe iron-deficiency anemia POSTOPERATIVE DIAGNOSES: 1. [id number] antral gastritis with pre-pyloric antral gastric erosions 2. Slightly irregular squamocolumnar junction otherwise normal examination up to the 2nd and 3rd part of the duodenum PROCEDURE PERFORMED BY: Tony Torres GI NURSE: Monet SCOPE: Olympus videoendoscope. ASA CLASS: 3 PREOPERATIVE MEDICATIONS: Versed 2 mg, Fentanyl 50 mcg, Benadryl 50 mg I administered moderate sedation throughout this _9_ minutes procedure. An in dependent trained observer pushed medications at my direction, and monitored the patient's level of consciousness and physiological status throughout. PROCEDURE IN DETAIL: After obtaining an informed consent, the patient was placed on left lateral decubitus position. The patient was then sedated with the above medications. A bite block was placed between his teeth. The endoscope was then passed through the oropharynx, into the esophagus, and through the stomach and pylorus up to the second and third part of the duodenum. The endoscope was then withdrawn. The 2nd and 3rd part of the duodenum and the duodenal bulb were normal. There was good bile drainage. Duodenal biopsies were obtained The pre-pyloric area antrum and body showed mild gastritis. There were pre- pyloric antral gastric erosions. Gastric biopsies were obtained. On retroflexion the fundus cardia and angularis were normal. There was no fresh or old blood in the upper GI tract. The endoscope was then withdrawn into the distal esophagus where the patient had a slightly irregular squamocolumnar junction And extension of 5 mm of columnar epithelium into the distal esophagus. The remaining distal and proximal esophagus and oropharynx were unremarkable The patient tolerated the procedure well without difficulty. COMPLICATIONS : None SPECIMENS: Duodenal biopsies Gastric biopsies DISPOSITION: Transfer back to the floor Stable PLAN: 1. Await for biopsy result 2. Will place pt on Protonix 40 mg p.o. daily 3. Clear liquid diet and bowel prep today 4. Patient will be scheduled for colonoscopy on 10/05/2024 TONY TORRES MD Oct 04, 2024 10:54
[2024-10-04] MEDS: GOLYTELY 4L KIT PO ONE (14:40)
--- NOTE | 2024-10-04 21:50 | DVHPN2 ---
Progress Note - Dictate Date Seen: Oct 04, 2024 Medical Necessity Reason Pt with a Central, PICC or Fol: No Subjective Patient was seen and evaluated in follow up. Patient underwent upper endopscy which showed [id number] antral gastritis with pre-pyloric antral gastric erosions, slightly irregular squamocolumnar junction otherwise normal examination up to the 2nd and 3rd part of the duodenum. Patient being arranged for colonoscopy. vital signs Vital Sign Date Time Temp Pulse Resp B/P (MAP) Pulse Ox O2 Delivery O2 Flow Rate FiO2 10/04/24 21:00 98.5 109 17 151/71 (97) 87 98.5 10/04/24 10:51 Nasal Cannula 6.0 10/04/24 10:38 100 Total Intake and Output 10/03/24 10/03/24 10/04/24 14:59 22:59 06:59 Intake Total 480 ml 300 ml Output Total 900 ml 1175 ml Balance -420 ml -875 ml medications Current Medications Medications Dose Ordered Sig/Erasto Route Start Time Stop Time Status Last Admin Dose Admin Nitroglycerin 0.4 mg Q5MINP PRN SL 10/01/24 17:15 Morphine Sulfate 2 mg Q30M PRN IV 10/01/24 17:15 Pantoprazole Sodium 40 mg DAILY IV 10/02/24 10:00 10/03/24 08:32 40 MG objective GENERAL: Awake, alert, oriented. LUNGS: Clear. CARDIOVASCULAR: Heart sounds are good. ABDOMEN: Soft. laboratory and microbiology Laboratory Tests 10/03/24 06:40 10/02/24 04:42 Test 10/02/24 04:42 Range/Units Serum Glucose 233 H 74-106 mg/dL Problem List Acute on chronic iron deficiency anemia. CAD. CHF. DM. HLD. HTN. History of PTCA on blood thinners. Assessment/Plan Continued all current supportive medical care. Morphine for pain management. Diuretics with Lasix. GI prophylactics. Additional plan as per the hospital course. Dietary Evaluation Review Comments: 1. Advance diet to CCHO-60g when medically feasible. 2. Monitor intake to meet 75% of his needs. 3. Consider iron supplements Expected Outcomes/Goals: Improved nutriton related lab values. Gradual weight loss. Plan discussed with: Patient LENORE ABRAHAM MD Oct 04, 2024 21:50
--- NOTE | 2024-10-04 22:19 | DVHINCON2 ---
Date of service: Oct 04, 2024 Family History: Diabetes mellitus MOTHER FH: Parkinson's disease BROTHER FH: emphysema G8 MOTHER FH: hepatic cirrhosis G8 MOTHER Smoking G8 FATHER Allergies: Coded Allergies: NO KNOWN ALLERGIES (Unverified , 06/04/21) Home Meds Reported Medications Furosemide (Furosemide) 20 Mg Tab, TAB PO 10/01/24 Pantoprazole Sodium Sesquihydr (Pantoprazole Sodium) 40 Mg Tab, 1 TAB PO DAILY 10/01/24 Clopidogrel Bisulfate (CLOPIDOGREL) 75 Mg Tab, 1 TAB PO DAILY 10/01/24 Levothyroxine Sodium (Levothyroxine Sodium) 25 Mcg Tab, 1 TAB PO DAILY 10/01/24 Empagliflozin (Jardiance) 25 Mg Tab, 1 TAB PO DAILY 10/01/24 Atorvastatin Calcium (ATORVASTATIN CALCIUM) 20 Mg Tab, 20 MG 10/01/24 Apixaban Base (ELIQUIS) 2.5 Mg Tab, 1 TAB PO BID 10/01/24 Sacubitril-Valsartan (Entresto 49-51 mg) 1 Tab Tab, 1 TAB PO BID 10/01/24 Ferrous Gluconate (IRON) 27 Mg Tab, 27 MG PO DAILY, TAB 12/31/20 Carvedilol (Carvedilol) 25 Mg Tab, 25 MG PO BID 12/31/20 Glipizide (Glipizide) 10 Mg Tab, 1 TAB PO DAILY 30 minutes before breakfast 12/31/20 Vital Signs Vital Signs Date Time Temp Pulse Resp B/P (MAP) Pulse Ox O2 Delivery O2 Flow Rate FiO2 10/04/24 21:00 98.5 109 17 151/71 (97) 87 98.5 10/04/24 10:51 Nasal Cannula 6.0 10/04/24 10:38 100 Labs/Diagnostic Data Labs Test 10/03/24 06:40 10/02/24 04:42 10/01/24 17:36 Range/Units White Blood Count 5.2 4.4-10.8 10^3/uL Red Blood Count 3.94 L 4.5-5.90 10^6/uL Hemoglobin 8.5 L 13.5-17.5 g/dL Hematocrit 27.6 L 41.0-53.0 % Mean Corpuscular Volume 70.1 #L 80.0-100.0 fL Mean Corpuscular Hemoglobin 21.5 L 28.0-32.0 pg Mean Corpuscular Hemoglobin Concent 30.6 L 32.0-36.0 g/dL Red Cell Distribution Width 20.4 H 11.8-14.3 % Platelet Count 130 L 140-450 10^3/uL Mean Platelet Volume 8.7 6.9-10.8 fL Neutrophils (%) (Auto) 75.5 37.0-80.0 % Lymphocytes (%) (Auto) 9.2 L 10.0-50.0 % Monocytes (%) (Auto) 10.3 0.0-12.0 % Eosinophils (%) (Auto) 4.3 0.0-7.0 % Basophils (%) (Auto) 0.7 0.0-2.0 % Neutrophils # (Auto) 3.9 1.6-8.6 10 ^3/uL Lymphocytes # (Auto) 0.5 0.4-5.4 10 ^3/uL Monocytes # (Auto) 0.5 0-1.3 10 ^3/uL Eosinophils # (Auto) 0.2 0-0.8 10 ^3/uL Basophils # (Auto) 0 0-0.2 10 ^3/uL Nucleated Red Blood Cells 0.3 % Iron Level 25 L 65-175 ug/dL Total Iron Binding Capacity 350 250-425 ug/dL Percent Iron Saturation 7.1 L 20-55 % Platelet Estimate Adequate Hypochromasia (manual) Moderate Anisocytosis (manual) Slight Microcytosis Moderate Ovalocytes Few Sodium Level 137 136-145 mmol/L Potassium Level 5.1 3.5-5.1 mmol/L Chloride Level 108 H 98-107 mmol/L Carbon Dioxide Level 24 20-31 mmol/L Anion Gap 5 5-15 Blood Urea Nitrogen 49 H 9-23 mg/dL Creatinine 1.94 H 0.700-1.30 mg/dL Glomerular Filtration Rate Calc 34 >90 mL/min BUN/Creatinine Ratio 25.3 H 10.0-20.0 Serum Glucose 233 H 74-106 mg/dL Calcium Level 9.9 8.7-10.4 mg/dL Total Bilirubin 1.0 0.2-1.0 mg/dL Aspartate Amino Transferase (AST) < 8 L 13-40 U/L Alanine Aminotransferase (ALT) 16 7-40 U/L Alkaline Phosphatase 69 46-116 U/L Total Protein 6.9 5.7-8.2 g/dL Albumin 4.4 3.2-4.8 g/dL Reticulocyte Count (auto) 2.52 H 0.5-1.5 % Plan/Recommendation ASSESSMENT AND PLAN: ID Problem List: - Anemia - Chronic Kidney Disease - Coronary Artery Disease - Type 2 Diabetes Mellitus - Hyperlipidemia - Hypertension - Hepatic Cirrhosis Assessment This is an 79-year-old male with a past medical history of coronary artery disease, type 2 diabetes mellitus, hyperlipidemia, hypertension, and hepatic cirrhosis, who presents with generalized weakness and symptomatic anemia (hemoglobin 7.8 g/dL). The patient was admitted with a hemoglobin of 7.8 g/dL and reports generalized weakness. Creatinine is elevated at 2.11 mg/dL from baseline. Glucose level is elevated at 281 mg/dL. Abdominal ultrasound demonstrates hepatic cirrhosis. No fevers reported. Plan: - Anemia Evaluation: - Likely anemia of chronic disease versus blood loss anemia. - Evaluate for hemolytic anemia with haptoglobin levels. hold off on antibiotics at this time - If hemolytic anemia is present, consider evaluation for intravascular parasites. - Maintain hemoglobin above 7 g/dL; provide transfusions as needed. - Recommend Gastroenterology consultation to evaluate for possible gastrointestinal bleed. - Renal Function: - Monitor kidney function closely due to elevated creatinine indicating possible acute on chronic kidney disease. - Adjust medications as necessary to accommodate renal function. - Diabetes Management: - Optimize blood glucose control. - Continue current antidiabetic medications; adjust dosages if needed. - Cardiovascular Management: - Defer management of coronary artery disease to Cardiology. - Continue current medications for coronary artery disease and hypertension. - Medications: - Review current medications for any nephrotoxic agents. - Continue home medications unless contraindicated. - Further Evaluations: - Monitor vital signs and oxygen saturation. - Repeat laboratory tests to track hemoglobin, renal function, and glucose levels. Isolation Precautions: Standard Assessment and plan were discussed with the patient as written above. Plan is subject to change pending incorporation of new incoming information/diagnostics. Updates may be added as addendum at the bottom (OR TOP) of this note. Thank you for the consult. The team will continue to follow. Please contact us for any questions or concerns. History: The patient's chart and medications were reviewed in detail, and the patient was seen and examined. History obtained from: Patient Mr. Jackson is an 79-year-old male with a past medical history of coronary artery disease, type 2 diabetes mellitus, hyperlipidemia, hypertension, and hepatic cirrhosis, who presents with generalized weakness and a hemoglobin of 7.8 g/dL on admission. The patient reports generalized weakness. Laboratory results reveal elevated creatinine at 2.11 mg/dL (elevated from baseline) and elevated glucose at 281 mg/dL. Abdominal ultrasound shows hepatic cirrhosis. No notable fevers reported. Review of Systems: A complete 10-system review was conducted and is negative except as noted in the HPI or below. - CONSTITUTIONAL: Reports generalized weakness. Denies weight loss, fever, and chills. - HEENT: Denies changes in vision and hearing. - RESPIRATORY: Denies shortness of breath and cough. - CARDIOVASCULAR: Denies palpitations and chest pain. - GASTROINTESTINAL: Denies abdominal pain, nausea, vomiting, and diarrhea. - GENITOURINARY: Denies dysuria and urinary frequency. - MUSCULOSKELETAL: Denies myalgia and joint pain. - SKIN: Denies rash and pruritus. - NEUROLOGICAL: Denies headache and syncope. - PSYCHIATRIC: Denies recent changes in mood, anxiety, and depression. Past Medical History: - Coronary Artery Disease - Type 2 Diabetes Mellitus - Hyperlipidemia - Hypertension - Hepatic Cirrhosis Past Surgical History: History reviewed. No pertinent surgical history. Home Medications: - Furosemide (Lasix) 40 mg tablet: Take 1 tablet by mouth daily. - Clopidogrel (Plavix) 75 mg tablet: Take 1 tablet by mouth daily. - Levothyroxine 75 mcg tablet: Take 1 tablet by mouth daily. - Atorvastatin 40 mg tablet: Take 1 tablet by mouth daily. - Apixaban (Eliquis) 5 mg tablet: Take 1 tablet by mouth twice daily. - Sacubitril/Valsartan (Entresto) 49/51 mg tablet: Take 1 tablet by mouth twice daily. - Iron Supplement: Take as directed. - Carvedilol 25 mg tablet: Take 1 tablet by mouth twice daily. - Glipizide 5 mg tablet: Take 1 tablet by mouth daily. - Ranolazine (Ranexa) 500 mg tablet: Take 1 tablet by mouth twice daily. Allergies: No known drug allergies. Family History: - Father: Diabetes Mellitus Social History: - Marital Status: Not specified. - Smoking Status: Not specified. - Alcohol Use: Not specified. - Drug Use: Denies illicit drug use. - Occupation: Not specified. Objective: Vital Signs on Arrival: - Temperature: 96.9 F - Blood Pressure: 163/41 mmHg - Pulse: 61 bpm - Respiratory Rate: 16 breaths per minute - SpO2: 99% on room air Most Recent Vital Signs: - Temperature: 96.9 F - Blood Pressure: 163/41 mmHg - Pulse: 61 bpm - Respiratory Rate: 16 breaths per minute - SpO2: 99% on room air Weight: 75.7 kg Physical Exam: - General: Appears weak; no acute distress. - Neck: Supple. No masses. HEENT: - Pupils equal, round, and reactive to light. - Pale mucous membranes. - Normal lids and conjunctiva. - Moist mucous membranes. - Oropharynx without lesions, exudates, or excessive erythema. - Normal appearance of the external nose and ears. - Heart: Regular rhythm, normal rate. No murmurs. No lower extremity edema. - Lungs: Normal respiratory effort. Clear to auscultation bilaterally. No wheezes or crackles. - Abdomen: Soft. Non-tender. Non-distended. No masses or abdominal hernia. - Musculoskeletal: No digital cyanosis. Normal strength and tone in all four limbs. - Skin: Warm and dry. No rashes. - Neurological: Alert. No facial droop or slurred speech. Extraocular movements intact. Sensation intact to soft touch in all four limbs. - Psychiatric: Appropriate mood. Full affect. Oriented to person, place, time, and situation. Diagnostic Studies: - Laboratory Results: - Hemoglobin: 7.8 g/dL (low) - Platelet Count: 164 x10^9/L - BUN: 48 mg/dL - Creatinine: 2.11 mg/dL (elevated from baseline) - Glucose: 281 mg/dL - Imaging: - Abdominal Ultrasound: - Findings consistent with hepatic cirrhosis. Lines: - Peripheral IV Line: Inserted on 10/05/2024 in the left arm; functioning properly. Plan discussed with: Patient TYRONE SOLO MD Oct 04, 2024 22:19
[2024-10-05] VITALS (10 sets, daily range): BP systolic 98–156; BP diastolic 54–75; PULSE 59–91; RESP 12–18; TEMP 97.4–98.8; O2SAT 90–100
[2024-10-05] MEDS: MAGNESIUM CITRATE SOLUTION 300 ML BTL PO ONE (05:34)
[2024-10-05] MEDS: GOLYTELY 4L KIT PO ONE (06:15)
[2024-10-05] MEDS ORDERED: PROPOFOL 10 MG/ML 20 ML IV ONE (09:30)
[2024-10-05] MEDS ORDERED: LIDOCAINE 1% INJ PF 5ML AMP ONE (09:30)
[2024-10-05] MEDS ORDERED: ePHEDrine SULFATE 50 MG/ML AMP ONE (10:08)
--- NOTE | 2024-10-05 10:25 | DVHOP2 ---
Operative Report DATE OF OPERATION: 10/05/24 PROCEDURE: Colonoscopy with cold biopsy polypectomy. PREOPERATIVE INDICATION: The patient is a 79 -year-old male undergoing colonoscopy for evaluation of iron-deficiency anemia and colon cancer screening POSTOPERATIVE DIAGNOSES: 1. There were two 1-2 mm benign-appearing polyp seen in the base of the cecum that were completely removed by cold biopsy forceps 2. Mild sigmoid diverticular disease 3. Trace internal hemorrhoids otherwise normal examination up to the cecum and terminal ileum PROCEDURE PERFORMED BY: Tony Torres M.D. SCOPE: Olympus videocolonoscope. ASA CLASS: 3. PREOPERATIVE MEDICATIONS: Mac sedation, Edward Goldman PROCEDURE IN DETAIL: After obtaining an informed consent, the patient was placed on left lateral decubitus position. He was then sedated with the above medications. A rectal examination was performed that was normal. The colonoscope was then passed through the anus into the rectosigmoid and through the descending, transverse, and ascending colon up to the cecum with visualization of the appendiceal orifice, base of the cecum and the ileocecal valve. The colonoscope was then withdrawn. The distal 5-10 cm of the terminal ileum were normal. In the base of the cecum there were two 1-2 mm benign-appearing polyps that were completely removed by cold biopsy polypectomy No other polyps or masses were seen. There was no colitis. Patient had mild left colon diverticular disease most prominent in the sigmoid On retroflexion and straight on view he had trace to 1+ internal hemorrhoids. There was no fresh or old blood in the colon The patient tolerated the procedure well without difficulty. WITHDRAWAL TIME: 10 minutes QUALITY OF THE PREP: [place] Bowel Prep score: 9. COMPLICATIONS : None SPECIMENS: Cecal polyps x2 DISPOSITION: Transfer back to the floor Stable PLAN: 1. Repeat colonoscopy base on biopsy result likely in 4-5 years 2. Resume GI soft diet advance as tolerated 3. Continue Protonix 40 mg p.o. daily 4. Avoid aspirin and NSAIDs 5. Outpatient follow up with me in 4-6 weeks to review results and discuss further management TONY TORRES MD Oct 05, 2024 10:25
--- NOTE | 2024-10-05 13:49 | DVHPN2 ---
Consult Progress Note Date Seen: Oct 05, 2024 Subjective Patient reports: Feels better (sp colonscopy) Objective vital signs Vital Sign Date Time Temp Pulse Resp B/P (MAP) Pulse Ox O2 Delivery O2 Flow Rate FiO2 10/05/24 13:00 97.8 59 16 100/55 (70) 96 97.8 10/05/24 10:24 Room Air 0 97 Total Intake and Output 10/04/24 10/04/24 10/05/24 15:00 23:00 07:00 Intake Total 50 ml 1000 ml 110 ml Output Total 700 ml Balance 50 ml 300 ml 110 ml medications Current Medications Medications Dose Ordered Sig/Erasto Route Start Time Stop Time Status Last Admin Dose Admin Nitroglycerin 0.4 mg Q5MINP PRN SL 10/01/24 17:15 Morphine Sulfate 2 mg Q30M PRN IV 10/01/24 17:15 Pantoprazole Sodium 40 mg DAILY IV 10/02/24 10:00 10/05/24 12:32 40 MG Physical Exam: General: Appears weak; no acute distress. Neck: Supple. No masses. HEENT: Pupils equal, round, and reactive to light. Pale mucous membranes. Normal lids and conjunctiva. Moist mucous membranes. Oropharynx without lesions, exudates, or excessive erythema. Normal appearance of the external nose and ears. Heart: Regular rhythm, normal rate. No murmurs. No lower extremity edema. Lungs: Normal respiratory effort. Clear to auscultation bilaterally. No wheezes or crackles. Abdomen: Soft. Non-tender. Non-distended. No masses or abdominal hernia. Musculoskeletal: No digital cyanosis. Normal strength and tone in all four limbs. Skin: Warm and dry. No rashes. Neurological: Alert. No facial droop or slurred speech. Extraocular movements intact. Sensation intact to soft touch in all four limbs. Psychiatric: Appropriate mood. Full affect. Oriented to person, place, time, and situation. laboratory and microbiology Laboratory Tests 10/03/24 06:40 10/02/24 04:42 Test 10/02/24 04:42 Range/Units Serum Glucose 233 H 74-106 mg/dL Problem List/Assessment/Plan Problems(with codes): (1) Parasite infection (2) SVT (supraventricular tachycardia) (3) Anemia (4) GI bleed Problem List/Assessment/Plan ASSESSMENT AND PLAN: ID Problem List: -- Anemia -- Chronic Kidney Disease -- Coronary Artery Disease -- Type 2 Diabetes Mellitus -- Hyperlipidemia -- Hypertension -- Hepatic Cirrhosis Assessment This is an 79-year-old male with a past medical history of coronary artery disease, type 2 diabetes mellitus, hyperlipidemia, hypertension, and hepatic cirrhosis, who presents with generalized weakness and symptomatic anemia (hemoglobin 7.8 g/dL). The patient was admitted with a hemoglobin of 7.8 g/dL and reports generalized weakness. Creatinine is elevated at 2.11 mg/dL from baseline. Glucose level is elevated at 281 mg/dL. Abdominal ultrasound demonstrates hepatic cirrhosis. No fevers reported. Plan: Anemia Evaluation: Likely anemia of chronic disease versus blood loss anemia. Evaluate for hemolytic anemia with haptoglobin levels. If hemolytic anemia is present, consider evaluation for intravascular parasites. Maintain hemoglobin above 7 g/dL; provide transfusions as needed. Recommend Gastroenterology consultation to evaluate for possible gastrointestinal bleed. Renal Function: Monitor kidney function closely due to elevated creatinine indicating possible acute on chronic kidney disease. Adjust medications as necessary to accommodate renal function. Diabetes Management: Optimize blood glucose control. Continue current antidiabetic medications; adjust dosages if needed. Cardiovascular Management: Defer management of coronary artery disease to Cardiology. Continue current medications for coronary artery disease and hypertension. Medications: Review current medications for any nephrotoxic agents. Continue home medications unless contraindicated. Further Evaluations: Monitor vital signs and oxygen saturation. Repeat laboratory tests to track hemoglobin, renal function, and glucose levels. Isolation Precautions: Standard Plan discussed with: Patient Dietary Evaluation Review Comments: 1. Advance diet to CCHO-60g when medically feasible. 2. Monitor intake to meet 75% of his needs. 3. Consider iron supplements Expected Outcomes/Goals: Improved nutriton related lab values. Gradual weight loss. TYRONE SOLO MD Oct 05, 2024 13:49
--- NOTE | 2024-10-05 13:50 | DVHDSRES ---
Discharge Summary Date of Admission Resident Creating Document: TYRONE CARPENTER MD Oct 01, 2024 at 16:47 Date of Discharge: Oct 05, 2024 Admitting Diagnosis blood loss anemia Wounds: none Labs/Diagnostic Data: Laboratory Results Test 10/03/24 06:40 10/02/24 04:42 10/01/24 17:36 White Blood Count 5.2 10^3/uL (4.4-10.8) Red Blood Count 3.94 10^6/uL (4.5-5.90) Hemoglobin 8.5 g/dL (13.5-17.5) Hematocrit 27.6 % (41.0-53.0) Mean Corpuscular Volume 70.1 fL (80.0-100.0) Mean Corpuscular Hemoglobin 21.5 pg (28.0-32.0) Mean Corpuscular Hemoglobin Concent 30.6 g/dL (32.0-36.0) Red Cell Distribution Width 20.4 % (11.8-14.3) Platelet Count 130 10^3/uL (140-450) Mean Platelet Volume 8.7 fL (6.9-10.8) Neutrophils (%) (Auto) 75.5 % (37.0-80.0) Lymphocytes (%) (Auto) 9.2 % (10.0-50.0) Monocytes (%) (Auto) 10.3 % (0.0-12.0) Eosinophils (%) (Auto) 4.3 % (0.0-7.0) Basophils (%) (Auto) 0.7 % (0.0-2.0) Neutrophils # (Auto) 3.9 10 ^3/uL (1.6-8.6) Lymphocytes # (Auto) 0.5 10 ^3/uL (0.4-5.4) Monocytes # (Auto) 0.5 10 ^3/uL (0-1.3) Eosinophils # (Auto) 0.2 10 ^3/uL (0-0.8) Basophils # (Auto) 0 10 ^3/uL (0-0.2) Nucleated Red Blood Cells 0.3 % Iron Level 25 ug/dL (65-175) Total Iron Binding Capacity 350 ug/dL (250-425) Percent Iron Saturation 7.1 % (20-55) Platelet Estimate Adequate Hypochromasia (manual) Moderate Anisocytosis (manual) Slight Microcytosis Moderate Ovalocytes Few Sodium Level 137 mmol/L (136-145) Potassium Level 5.1 mmol/L (3.5-5.1) Chloride Level 108 mmol/L (98-107) Carbon Dioxide Level 24 mmol/L (20-31) Anion Gap 5 (5-15) Blood Urea Nitrogen 49 mg/dL (9-23) Creatinine 1.94 mg/dL (0.700-1.30) Glomerular Filtration Rate Calc 34 mL/min (>90) BUN/Creatinine Ratio 25.3 (10.0-20.0) Serum Glucose 233 mg/dL (74-106) Calcium Level 9.9 mg/dL (8.7-10.4) Total Bilirubin 1.0 mg/dL (0.2-1.0) Aspartate Amino Transferase (AST) < 8 U/L (13-40) Alanine Aminotransferase (ALT) 16 U/L (7-40) Alkaline Phosphatase 69 U/L (46-116) Total Protein 6.9 g/dL (5.7-8.2) Albumin 4.4 g/dL (3.2-4.8) Reticulocyte Count (auto) 2.52 % (0.5-1.5) Other Laboratory Tests 10/03/24 06:40 10/02/24 04:42 Brief Hx & Hospital Course: This is an 79-year-old male with a past medical history of coronary artery disease, type 2 diabetes mellitus, hyperlipidemia, hypertension, and hepatic cirrhosis, who presents with generalized weakness and symptomatic anemia (hemoglobin 7.8 g/dL). The patient was admitted with a hemoglobin of 7.8 g/dL and reports generalized weakness. Creatinine is elevated at 2.11 mg/dL from baseline. Glucose level is elevated at 281 mg/dL. Abdominal ultrasound demonstrates hepatic cirrhosis. No fevers reported. received 1U PRBC, was evaluated by Dr Eve vargas for management of PAD and CAD in setting of anemia, recommended continuation of current regimen. Seen by Dr. Sydni Gottlieb with Gastroenterology, who recommend iron panel. iron panel c/w Iron deficiency anemia. was seen by Infectious disease to rule out parasitemia, no hemolytic anemia was found. sp EGD on 10/04 1. [id number] antral gastritis with pre-pyloric antral gastric erosions 2. Slightly irregular squamocolumnar junction otherwise normal examination up to the 2nd and 3rd part of the duodenum PLAN: 1. Await for biopsy result (duodenal and gastric biopsies) 2. Will place pt on Protonix 40 mg p.o. daily 3. Clear liquid diet and bowel prep today 4. Patient will be scheduled for colonoscopy on 10/05/2024 sp colonoscopy on 10/05 1. There were two 1-2 mm benign-appearing polyp seen in the base of the cecum that were completely removed by cold biopsy forceps 2. Mild sigmoid diverticular disease 3. Trace internal hemorrhoids otherwise normal examination up to the cecum and terminal ileum PLAN: 1. Repeat colonoscopy base on biopsy result likely in 4-5 years 2. Resume GI soft diet advance as tolerated 3. Continue Protonix 40 mg p.o. daily 4. Avoid aspirin and NSAIDs 5. Outpatient follow up with me in 4-6 weeks to review results and discuss further management Consults/Reason for consult Infectious Disease Cardiology Gastroenterology Operations or Procedures EGD - 10/04 colonoscopy - 10/05 Condition at Discharge: Good Final Diagnosis/Problems List Iron deficiency Anemia Anemia of Chronic disease Anemia of Renal Disease gastritis Problems List: (1) Gastritis Status: Acute (2) Uncontrolled diabetes mellitus Status: Acute (3) Parasite infection Status: Acute (4) Atrial fibrillation with RVR Status: Acute (5) Anemia Status: Acute (6) GI bleed Status: Acute Discharge Disposition: Home SNF Discharge Physician in charge at time of: ganesh. Robin Will this Physician continue t: Yes Name of Physician to Continue: Gurdeep Carpenter Reason For Transfer: pateint's PCP is Gurdeep Carpenter Discharge Instruct/Medications Diet: Cardiac 2g Na,low cholest Diet comment: diabetic low carb and low sodium 2g diet Activity: No Restrictions, As Tolerated Follow Up/Referral: FU w/ gastroenterology in 5 yrs for repeat EGD and colonoscopy fu w/ PCP for anemia management Medications: no change Care Plan: 1. start Pantoprazole 40mg qd 2. fu w/ PCP in 2 weeks 3. fu w/ GI in 4-6 weeks 4. continue all other medications. 54 Discharge Statement: "Patient was advised to return to the ER or call 911 if any headaches, dizziness, shortness of breath, chest pain, abdominal pain, bleeding, fevers, or worsening of medical condition. Patient was counseled about treatment plan, medications, possible side effects, patientverbalized understanding. All questions were answered to the best of my ability. This discharge took greater then 30 minutes in planning, reviewing documentation, counseling the patient, and discussing with other team members." ASSESSMENT ASSESSMENT Assessment Iron deficiency Anemia Anemia of Chronic disease Anemia of Renal Disease gastritis TYRONE CARPENTER MD Oct 05, 2024 13:49
[2024-10-05] MEDS ORDERED: PANT40T PO (13:54)
--- NOTE | 2024-10-05 13:55 | DVHDS2 ---
ASSESSMENT ASSESSMENT Assessment Iron deficiency Anemia Anemia of Chronic disease Anemia of Renal Disease gastritis Problems: (1) Parasite infection (2) GI bleed (3) Cirrhosis (4) Uncontrolled diabetes mellitus TYRONE SOLO MD Oct 05, 2024 13:55
--- NOTE | 2024-10-05 16:45 | DVHHP2 ---
Admitting Diagnosis: Date of service 10/01/2024 GI bleeding Post hemorrhage iron deficiency anemia History of Present Illness Mr Jackson with known history of recurrent cHF, S/P CABG, PTCA, NIDDM and Hyprertension is directly admitted for Acute posthemorrage on chronic iron deficiency anemia Hgb low at 7.5 g% Patient is symptomatic Past Medical History Past medical history records: Reviewed-refer details to prior history and physical Done at [facility]-admitted 07/2024 Cardiovascular history: Known history of hypertension, CAD-status post CABG x 3, recurrent CHF Paroxysmal atrial fibrillation-currently on apixaban as per recommendation of Dr. Joiner cardiology and Dr. Sydni Santiago neurology Respiratory history: Gastrointestinal history: GERD Genitourinary history: Acute kidney injury on CKD from inadvertent effect of diuretics, antihypertensives dose of diuretics has been optimized Endocrine history: NIDDM-under fair control, hemoglobin A1c runs around 6.6 Neurology history: Known history of CVA -documented through MRI exam at [facility] 06/05/2024 Musculoskeletal history: Hemato-oncology history: Acute on chronic iron-deficiency anemia Psychiatric history: Past Surgical History CABG, PTCA to coronary arteries Patient Family History: Diabetes mellitus MOTHER FH: Parkinson's disease BROTHER FH: emphysema G8 MOTHER FH: hepatic cirrhosis G8 MOTHER Smoking G8 FATHER Allergies: Coded Allergies: NO KNOWN ALLERGIES (Unverified , 06/04/21) Home Meds Active Scripts Pantoprazole Sodium Sesquihydr (Pantoprazole Sodium) 40 Mg Tab, 1 TAB PO DAILY for 30 Days, #30 TAB take 30 minutes prior to breakfast Prov:TYRONE SOLO MD 10/05/24 Reported Medications Furosemide (Furosemide) 20 Mg Tab, TAB PO 10/01/24 Clopidogrel Bisulfate (CLOPIDOGREL) 75 Mg Tab, 1 TAB PO DAILY 10/01/24 Levothyroxine Sodium (Levothyroxine Sodium) 25 Mcg Tab, 1 TAB PO DAILY 10/01/24 Empagliflozin (Jardiance) 25 Mg Tab, 1 TAB PO DAILY 10/01/24 Atorvastatin Calcium (ATORVASTATIN CALCIUM) 20 Mg Tab, 20 MG 10/01/24 Apixaban Base (ELIQUIS) 2.5 Mg Tab, 1 TAB PO BID 10/01/24 Sacubitril-Valsartan (Entresto 49-51 mg) 1 Tab Tab, 1 TAB PO BID 10/01/24 Ferrous Gluconate (IRON) 27 Mg Tab, 27 MG PO DAILY, TAB 12/31/20 Carvedilol (Carvedilol) 25 Mg Tab, 25 MG PO BID 12/31/20 Glipizide (Glipizide) 10 Mg Tab, 1 TAB PO DAILY 30 minutes before breakfast 12/31/20 Vital Signs Vital Signs Date Time Temp Pulse Resp B/P (MAP) Pulse Ox O2 Delivery O2 Flow Rate FiO2 10/05/24 13:00 97.8 59 16 100/55 (70) 96 97.8 10/05/24 10:24 Room Air 0 97 Physical Exam Vital Signs Vital Sign Date Time Temp Pulse Resp B/P (MAP) Pulse Ox O2 Delivery O2 Flow Rate FiO2 10/01/24 17:50 98.0 66 14 141/71 (94) 99 98.0 10/01/24 21:30 Room Air* 0 21 General appearance: Well-developed, well-nourished Awake alert oriented x3 no respiratory distress Head: Normocephalic nontraumatic Eyes: EOMI, ALEA, sclera nonicteric, conjunctive- pale ENT: No congestion, NSL bilateral symmetrical, oral mucosa dry Neck: Supple, carotid upstroke +2, trachea midline, JVD-3 cm, C spine- Full ROM No thyroid or lymph node , no use of sternomastoid muscle Chest: Bilateral symmetrical expansions, No costochondral tenderness Breasts: I exam - Bilateral symmetrical, Pexam - deferred Lungs: clear breath sounds all over except reduced at bases CVS: PMI- cm medial to L MCL in fifth ICS , S1- S2 NSR no S3 GI: Abdomen soft, obese, bowel sounds normoactive No focal tenderness, no rebound tenderness No hepatosplenomegaly, no mass no hernia , : No CVA tenderness, no bladder mass palpable, genitalia-NE SKIN: Turgor normal, color pink, no rash, no icterus, No varicosity, no ulcers or wounds EXTs: No edema, color pink, no rash, no ecc hymosis distal pulses +2 capillary refill <2 seconds, No open wounds JOINTS; full range of motion BACK: No apparent lumbosacral spinal muscle tenderness, LYMPH NODES: No cervical, axillary or inguinal lymph nodes Neuro: Awake alert oriented 4, coherent, all cognitives- intact No pronator drift, no focal motor deficit, No focal sensory deficit, DTR +2, ga it steady PSYCH: Affect mildly depressed-denies suicidal ideation Labs Test 10/01/24 17:36 Range/Units White Blood Count 4.4-10.8 10^3/uL Red Blood Count 4.5-5.90 10^6/uL Hemoglobin 13.5-17.5 g/dL Hematocrit 41.0-53.0 % Mean Corpuscular Volume 80.0-100.0 fL Mean Corpuscular Hemoglobin 28.0-32.0 pg Mean Corpuscular Hemoglobin Concent 32.0-36.0 g/dL Red Cell Distribution Width 11.8-14.3 % Platelet Count 140-450 10^3/uL Mean Platelet Volume 6.9-10.8 fL Neutrophils (%) (Auto) 37.0-80.0 % Lymphocytes (%) (Auto) 10.0-50.0 % Monocytes (%) (Auto) 0.0-12.0 % Eosinophils (%) (Auto) 0.0-7.0 % Basophils (%) (Auto) 0.0-2.0 % Neutrophils # (Auto) 1.6-8.6 10 ^3/uL Lymphocytes # (Auto) 0.4-5.4 10 ^3/uL Monocytes # (Auto) 0-1.3 10 ^3/uL Eosinophils # (Auto) 0-0.8 10 ^3/uL Basophils # (Auto) 0-0.2 10 ^3/uL Nucleated Red Blood Cells % Iron Level 65-175 ug/dL Total Iron Binding Capacity 250-425 ug/dL Percent Iron Saturation 20-55 % Platelet Estimate Hypochromasia (manual) Anisocytosis (manual) Microcytosis Ovalocytes Sodium Level 136-145 mmol/L Potassium Level 3.5-5.1 mmol/L Chloride Level 98-107 mmol/L Carbon Dioxide Level 20-31 mmol/L Anion Gap 5-15 Blood Urea Nitrogen 9-23 mg/dL Creatinine 0.700-1.30 mg/dL Glomerular Filtration Rate Calc >90 mL/min BUN/Creatinine Ratio 10.0-20.0 Serum Glucose 74-106 mg/dL Calcium Level 8.7-10.4 mg/dL Total Bilirubin 0.2-1.0 mg/dL Aspartate Amino Transferase (AST) 13-40 U/L Alanine Aminotransferase (ALT) 7-40 U/L Alkaline Phosphatase 46-116 U/L Total Protein 5.7-8.2 g/dL Albumin 3.2-4.8 g/dL Reticulocyte Count (auto) 2.52 H 0.5-1.5 % Results Labs Test 10/03/24 06:40 10/02/24 04:42 10/01/24 17:36 Range/Units White Blood Count 5.2 4.4-10.8 10^3/uL Red Blood Count 3.94 L 4.5-5.90 10^6/uL Hemoglobin 8.5 L 13.5-17.5 g/dL Hematocrit 27.6 L 41.0-53.0 % Mean Corpuscular Volume 70.1 #L 80.0-100.0 fL Mean Corpuscular Hemoglobin 21.5 L 28.0-32.0 pg Mean Corpuscular Hemoglobin Concent 30.6 L 32.0-36.0 g/dL Red Cell Distribution Width 20.4 H 11.8-14.3 % Platelet Count 130 L 140-450 10^3/uL Mean Platelet Volume 8.7 6.9-10.8 fL Neutrophils (%) (Auto) 75.5 37.0-80.0 % Lymphocytes (%) (Auto) 9.2 L 10.0-50.0 % Monocytes (%) (Auto) 10.3 0.0-12.0 % Eosinophils (%) (Auto) 4.3 0.0-7.0 % Basophils (%) (Auto) 0.7 0.0-2.0 % Neutrophils # (Auto) 3.9 1.6-8.6 10 ^3/uL Lymphocytes # (Auto) 0.5 0.4-5.4 10 ^3/uL Monocytes # (Auto) 0.5 0-1.3 10 ^3/uL Eosinophils # (Auto) 0.2 0-0.8 10 ^3/uL Basophils # (Auto) 0 0-0.2 10 ^3/uL Nucleated Red Blood Cells 0.3 % Iron Level 25 L 65-175 ug/dL Total Iron Binding Capacity 350 250-425 ug/dL Percent Iron Saturation 7.1 L 20-55 % Platelet Estimate Adequate Hypochromasia (manual) Moderate Anisocytosis (manual) Slight Microcytosis Moderate Ovalocytes Few Sodium Level 137 136-145 mmol/L Potassium Level 5.1 3.5-5.1 mmol/L Chloride Level 108 H 98-107 mmol/L Carbon Dioxide Level 24 20-31 mmol/L Anion Gap 5 5-15 Blood Urea Nitrogen 49 H 9-23 mg/dL Creatinine 1.94 H 0.700-1.30 mg/dL Glomerular Filtration Rate Calc 34 >90 mL/min BUN/Creatinine Ratio 25.3 H 10.0-20.0 Serum Glucose 233 H 74-106 mg/dL Calcium Level 9.9 8.7-10.4 mg/dL Total Bilirubin 1.0 0.2-1.0 mg/dL Aspartate Amino Transferase (AST) < 8 L 13-40 U/L Alanine Aminotransferase (ALT) 16 7-40 U/L Alkaline Phosphatase 69 46-116 U/L Total Protein 6.9 5.7-8.2 g/dL Albumin 4.4 3.2-4.8 g/dL Reticulocyte Count (auto) 2.52 H 0.5-1.5 % Primary Diagnosis 1. Upper GI bleeding complicated by post hemorrhage iron-deficiency anemia Rule out peptic ulcer disease Possible inadvertent effect of anticoagulants 2. Acute post hemorrhage iron deficiency anemia vs hemolytic anemia 3 Acute kidney injury on CKD from a. Intravascular volume depletion b. Inadvertent effect of diuretics and antihypertensives 4. Moderately severe hypovolemia Admitting Diagnosis: Acute post hemorrhage iron deficiency anemia 2' Diagnosis/Comorbidities 5. Fairly well-controlled diabetes and hypertension Medical decision making The patient presents with symptoms of acute post hemorrhage on chronic iron- deficiency anemia He Is suspected to have possible upper GI bleeding either from? peptic ulcer disease or Esophageal gastritis partly aggravated by concurrent use of anticoagulants Since patient has cardiac history, he requires PRBC transfusion for hemoglobin <8 grams percent Patient will receive IV Lasix before and after PRBC transfusion Will monitor hemoglobin holding to PRBC transfusion. Recommend with Dr. Sydni high GI consult for upper GI endoscopy Recommend Cardiology evaluation for continuation of anticoagulants Treatment plans Admit to telemetry floor Type and screen for 2 units of PRBC Recommend transfusion of 1 unit of PRBC with a beta Lasix 10 milligram IV push before and after PRBC Monitor CBC IV Protonix and Maalox Withhold apixaban and Plavix Dr. Sydni High on consult for GI consult and consideration of upper GI endoscopy evaluation Consult Dr. Eve Burnham for Cardiology-decide continuation of anticoagulants Cautious IV hydration VTE precautions Update patient The patient and/or family is well informed by me about 1. Clinical impression, treatment plans, side effects of medications, course of the disease and fair to guarded prognosis 2. All patient's question/ concerns raised by patient are satisfactorily a ddressed by me Total time spent 45 minutes 40% of time spent interviewing the patient and physical exam 30% of time spent in gathering lab datas and imaging studies 30 % of time is spent in patient education SEVEN SOLO MD Oct 05, 2024 16:44
--- NOTE | 2024-10-05 17:45 | DVHPN2 ---
Progress Note - Dictate Date Seen: Oct 02, 2024 Medical Necessity Reason Pt with a Central, PICC or Fol: No Subjective The patient is currently being evaluated and treated for symptoms of acute post hemorrhage Iron-deficiency anemia * His hemoglobin had dropped to 7 g% * The patient received PRBC transfusion x1 unit with Lasix * He tolerated PRBC transfusion very well * Post transfusion hemoglobin has gone up to 8.5 g% * Seen by And marco antonio were for gastroenterology evaluation * Seen by Dr. Eve Burnham from Cardiology vital signs Vital Sign Date Time Temp Pulse Resp B/P (MAP) Pulse Ox O2 Delivery O2 Flow Rate FiO2 10/05/24 13:00 97.8 59 16 100/55 (70) 96 97.8 10/05/24 10:24 Room Air 0 97 Total Intake and Output 10/04/24 10/04/24 10/05/24 15:00 23:00 07:00 Intake Total 50 ml 1000 ml 110 ml Output Total 700 ml Balance 50 ml 300 ml 110 ml medications Current Medications Medications Dose Ordered Sig/Erasto Route Start Time Stop Time Status Last Admin Dose Admin Nitroglycerin 0.4 mg Q5MINP PRN SL 10/01/24 17:15 Morphine Sulfate 2 mg Q30M PRN IV 10/01/24 17:15 Pantoprazole Sodium 40 mg DAILY IV 10/02/24 10:00 10/05/24 12:32 objective General appearance: Well-developed, well-nourished Awake alert oriented x3 no respiratory distress Head: Normocephalic nontraumatic Eyes: EOMI, ALEA, sclera nonicteric, conjunctive- pale ENT: No congestion, NSL bilateral symmetrical, oral mucosa dry Neck: Supple, carotid upstroke +2, trachea midline, JVD-3 cm, C spine- Full ROM No thyroid or lymph node , no use of sternomastoid muscle Chest: Bilateral symmetrical expansions, No costochondral tenderness Breasts: I exam - Bilateral symmetrical, Pexam - deferred Lungs: clear breath sounds all over except reduced at bases CVS: PMI- cm medial to L MCL in fifth ICS , S1- S2 NSR no S3 GI: Abdomen soft, obese, bowel sounds normoactive No focal tenderness, no rebound tenderness No hepatosplenomegaly, no mass no hernia , : No CVA tenderness, no bladder mass palpable, genitalia-NE SKIN: Turgor normal, color pink, no rash, no icterus, No varicosity, no ulcers or wounds EXTs: No edema, color pink, no rash, no ecchymosis distal pulses +2 capillary refill <2 seconds, No open wounds JOINTS; full range of motion BACK: No apparent lumbosacral spinal muscle tenderness, LYMPH NODES: No cervical, axillary or inguinal lymph nodes Neuro: Awake alert oriented 4, coherent, all cognitives- intact No pronator drift, no focal motor deficit, No focal sensory deficit, DTR +2, gait steady PSYCH: Affect mildly depressed-denies suicidal ideation laboratory and microbiology Laboratory Tests 10/03/24 06:40 10/02/24 04:42 Test 10/02/24 04:42 Range/Units Serum Glucose 233 H 74-106 mg/dL Problem List 1. Upper GI bleeding Rule out peptic ulcer disease 2. Acute post hemorrhage iron-deficiency anemia 3. Hemolytic anemia 4. Acute kidney injury on CKD From inadvertent effect of diuretics and antihypertensives 5. 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 Eve Torres Reviewed input of Dr. Eve Burnham VTE precautions Update patient The patient and/or family is well informed by me about 1. Clinical impression, treatment plans, side effects of medications, course of the disease and prognosis 2. All patient's question/ concerns raised by patient are satisfactorily addressed by me Total time spent 45 minutes 40% of time spent interviewing the patient and physical exam 30% of time spent in gathering lab datas and imaging studies 30 % of time is spent in patient education Dietary Evaluation Review Comments: 1. Advance diet to CCHO-60g when medically feasible. 2. Monitor intake to meet 75% of his needs. 3. Consider iron supplements Expected Outcomes/Goals: Improved nutriton related lab values. Gradual weight loss. SEVEN SOLO MD Oct 05, 2024 17:44
--- NOTE | 2024-10-05 17:47 | DVHPN2 ---
Progress Note - Dictate Date Seen: Oct 03, 2024 Medical Necessity Reason Pt with a Central, PICC or Fol: No Subjective The patient is currently being evaluated and treated for symptoms of acute post hemorrhage Iron-deficiency anemia * His hemoglobin had dropped to 7 g% * The patient received PRBC transfusion x1 unit with Lasix * He tolerated PRBC transfusion very well * Post transfusion hemoglobin has gone up to 8.5 g% * Received ultrasound of liver gallbladder which shows hepatic cirrhosis * Seen by Dr. Sydni Hammer who recommends upper GI endoscopy evaluation * Seen by Dr. Eve Burnham from Cardiology Overnight events are reviewed through medical chart and case discussion with patient's assigned RN while making rounds on patient on the day of service vital signs Vital Sign Date Time Temp Pulse Resp B/P (MAP) Pulse Ox O2 Delivery O2 Flow Rate FiO2 10/05/24 13:00 97.8 59 16 100/55 (70) 96 97.8 10/05/24 10:24 Room Air 0 97 Total Intake and Output 10/04/24 10/04/24 10/05/24 15:00 23:00 07:00 Intake Total 50 ml 1000 ml 110 ml Output Total 700 ml Balance 50 ml 300 ml 110 ml medications Current Medications Medications Dose Ordered Sig/Erasto Route Start Time Stop Time Status Last Admin Dose Admin Nitroglycerin 0.4 mg Q5MINP PRN SL 10/01/24 17:15 Morphine Sulfate 2 mg Q30M PRN IV 10/01/24 17:15 Pantoprazole Sodium 40 mg DAILY IV 10/02/24 10:00 10/05/24 12:32 objective General appearance: Well-developed, well-nourished Awake alert oriented x3 no respiratory distress Head: Normocephalic nontraumatic Eyes: EOMI, ALEA, sclera nonicteric, conjunctive- pale ENT: No congestion, NSL bilateral symmetrical, oral mucosa dry Neck: Supple, carotid upstroke +2, trachea midline, JVD-3 cm, C spine- Full ROM No thyroid or lymph node , no use of sternomastoid muscle Chest: Bilateral symmetrical expansions, No costochondral tenderness Breasts: I exam - Bilateral symmetrical, Pexam - deferred Lungs: clear breath sounds all over except reduced at bases CVS: PMI- cm medial to L MCL in fifth ICS , S1- S2 NSR no S3 GI: Abdomen soft, obese, bowel sounds normoactive No focal tenderness, no rebound tenderness No hepatosplenomegaly, no mass no hernia , : No CVA tenderness, no bladder mass palpable, genitalia-NE SKIN: Turgor normal, color pink, no rash, no icterus, No varicosity, no ulcers or wounds EXTs: No edema, color pink, no rash, no ecchymosis distal pulses +2 capillary refill <2 seconds, No open wounds JOINTS; full range of motion BACK: No apparent lumbosacral spinal muscle tenderness, LYMPH NODES: No cervical, axillary or inguinal lymph nodes Neuro: Awake alert oriented 4, coherent, all cognitives- intact No pronator drift, no focal motor deficit, No focal sensory deficit, DTR +2, gait steady PSYCH: Affect mildly depressed-denies suicidal ideation laboratory and microbiology Laboratory Tests 10/03/24 06:40 10/02/24 04:42 Test 10/02/24 04:42 Range/Units Serum Glucose 233 H 74-106 mg/dL ORDERING PHYSICIAN: TONY HOPPER MD PROCEDURE(s): ABDC - ABDOMEN COMPLETE SONOGRAM REASON: anemia cirrhosis ORDER NUMBER(s): [id number], ACCESSION NUMBER(s): [id number] INDICATION: anemia cirrhosis TECHNIQUE: Multiple real-time sonographic images of the abdomen were obtained. COMPARISON: None FINDINGS: Liver is heterogeneous and nodular in echogenicity. The liver measures 13 cm. No intrahepatic biliary ductal dilatation is noted. The gallbladder wall measures 0.2 cm and is unremarkable. Cholelithiasis. No pericholecystic fluid or edema. The common duct measures 0.4 cm and is unremarkable. The right kidney measures 9.8 cm. No hydronephrosis. The left kidney measures 10.3 cm. No hydronephrosis. Left renal midpole cyst measures 1.1 cm. The spleen measures 13 cm, within normal limits. The echogenicity is within normal limits. Trace perihepatic ascites. The pancreas is not well visualized due to obscuration from bowel gas. The visualized portions of the IVC and aorta are grossly unremarkable. IMPRESSION: Hepatic cirrhosis. Problem List 1. Upper GI bleeding Rule out peptic ulcer disease 2. Acute post hemorrhage iron-deficiency anemia 3. Hemolytic anemia 4. Acute kidney injury on CKD From inadvertent effect of diuretics and antihypertensives 5. 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 Eve Hopper by am Reviewed input of Dr. Eve Burnham VTE precautions Update patient The patient and/or family is well informed by me about 1. Clinical impression, treatment plans, side effects of medications, course of the disease and prognosis 2. All patient's question/ concerns raised by patient are satisfactorily addressed by me Total time spent 45 minutes 40% of time spent interviewing the patient and physical exam 30% of time spent in gathering lab datas and imaging studies 30 % of time is spent in patient education Dietary Evaluation Review Comments: 1. Advance diet to CCHO-60g when medically feasible. 2. Monitor intake to meet 75% of his needs. 3. Consider iron supplements Expected Outcomes/Goals: Improved nutriton related lab values. Gradual weight loss. SEVEN SOLO MD Oct 05, 2024 17:47
--- NOTE | 2024-10-05 18:03 | DVHPN2 ---
Progress Note - Dictate Date Seen: Oct 04, 2024 Medical Necessity Reason Pt with a Central, PICC or Fol: No Subjective The patient is currently being evaluated and treated for symptoms of acute post hemorrhage Iron-deficiency anemia * His hemoglobin had dropped to 7 g% * The patient received PRBC transfusion x1 unit with Lasix * He tolerated PRBC transfusion very well * Post transfusion hemoglobin has gone up to 8.5 g% * Received upper GI endoscopy by Dr. Alejandro high gastroenterology * Seen by Dr. Eve Burnham from Cardiology Overnight events are reviewed through medical chart and case discussion with patient's assigned RN while making rounds on patient on the day of service vital signs Vital Sign Date Time Temp Pulse Resp B/P (MAP) Pulse Ox O2 Delivery O2 Flow Rate FiO2 10/05/24 13:00 97.8 59 16 100/55 (70) 96 97.8 10/05/24 10:24 Room Air 0 97 Total Intake and Output 10/04/24 10/04/24 10/05/24 15:00 23:00 07:00 Intake Total 50 ml 1000 ml 110 ml Output Total 700 ml Balance 50 ml 300 ml 110 ml medications Current Medications Medications Dose Ordered Sig/Erasto Route Start Time Stop Time Status Last Admin Dose Admin Nitroglycerin 0.4 mg Q5MINP PRN SL 10/01/24 17:15 Morphine Sulfate 2 mg Q30M PRN IV 10/01/24 17:15 Pantoprazole Sodium 40 mg DAILY IV 10/02/24 10:00 10/05/24 12:32 objective General appearance: Well-developed, well-nourished Awake alert oriented x3 no respiratory distress Head: Normocephalic nontraumatic Eyes: EOMI, ALEA, sclera nonicteric, conjunctive- pale ENT: No congestion, NSL bilateral symmetrical, oral mucosa dry Neck: Supple, carotid upstroke +2, trachea midline, JVD-3 cm, C spine- Full ROM No thyroid or lymph node , no use of sternomastoid muscle Chest: Bilateral symmetrical expansions, No costochondral tenderness Breasts: I exam - Bilateral symmetrical, Pexam - deferred Lungs: clear breath sounds all over except reduced at bases CVS: PMI- cm medial to L MCL in fifth ICS , S1- S2 NSR no S3 GI: Abdomen soft, obese, bowel sounds normoactive No focal tenderness, no rebound tenderness No hepatosplenomegaly, no mass no hernia , : No CVA tenderness, no bladder mass palpable, genitalia-NE SKIN: Turgor normal, color pink, no rash, no icterus, No varicosity, no ulcers or wounds EXTs: No edema, color pink, no rash, no ecchymosis distal pulses +2 capillary refill <2 seconds, No open wounds JOINTS; full range of motion BACK: No apparent lumbosacral spinal muscle tenderness, LYMPH NODES: No cervical, axillary or inguinal lymph nodes Neuro: Awake alert oriented 4, coherent, all cognitives- intact No pronator drift, no focal motor deficit, No focal sensory deficit, DTR +2, gait steady PSYCH: Affect mildly depressed-denies suicidal ideation laboratory and microbiology Laboratory Tests 10/03/24 06:40 10/02/24 04:42 Test 10/02/24 04:42 Range/Units Serum Glucose 233 H 74-106 mg/dL Problem List 1. Upper GI bleeding Rule out peptic ulcer disease 2. Acute post hemorrhage iron-deficiency anemia 3. Hemolytic anemia 4. Acute kidney injury on CKD From inadvertent effect of diuretics and antihypertensives 5. 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 Eve High by am Reviewed input of Dr. Eve Burnham VTE precautions Update patient The patient and/or family is well informed by me about 1. Clinical impression, treatment plans, side effects of medications, course of the disease and prognosis 2. All patient's question/ concerns raised by patient are satisfactorily addressed by me Total time spent 45 minutes 40% of time spent interviewing the patient and physical exam 30% of time spent in gathering lab datas and imaging studies 30 % of time is spent in patient education Dietary Evaluation Review Comments: 1. Advance diet to CCHO-60g when medically feasible. 2. Monitor intake to meet 75% of his needs. 3. Consider iron supplements Expected Outcomes/Goals: Improved nutriton related lab values. Gradual weight loss. SEVEN SOLO MD Oct 05, 2024 18:03
--- NOTE | 2024-10-05 18:11 | DVHPN2 ---
Progress Note - Dictate Date Seen: Oct 05, 2024 Medical Necessity Reason Pt with a Central, PICC or Fol: No Subjective The patient is currently being evaluated and treated for symptoms of acute post hemorrhage Iron-deficiency anemia * His hemoglobin had dropped to 7 g% * The patient received PRBC transfusion x1 unit with Lasix * He tolerated PRBC transfusion very well * Post transfusion hemoglobin has gone up to 8.5 g% * Received lower GI endoscopy by Dr. Alejandro high gastroenterology * Seen by Dr. Eve Burnham from Cardiology Overnight events are reviewed through medical chart and case discussion with patient's assigned RN while making rounds on patient on the day of service vital signs Vital Sign Date Time Temp Pulse Resp B/P (MAP) Pulse Ox O2 Delivery O2 Flow Rate FiO2 10/05/24 17:50 98.8 74 16 99 10/05/24 17:00 111/54 (73) 10/05/24 10:24 Room Air 0 97 Total Intake and Output 10/04/24 10/04/24 10/05/24 15:00 23:00 07:00 Intake Total 50 ml 1000 ml 110 ml Output Total 700 ml Balance 50 ml 300 ml 110 ml medications Current Medications Medications Dose Ordered Sig/Erasto Route Start Time Stop Time Status Last Admin Dose Admin Nitroglycerin 0.4 mg Q5MINP PRN SL 10/01/24 17:15 Morphine Sulfate 2 mg Q30M PRN IV 10/01/24 17:15 Pantoprazole Sodium 40 mg DAILY IV 10/02/24 10:00 10/05/24 12:32 40 MG objective General appearance: Well-developed, well-nourished Awake alert oriented x3 no respiratory distress Head: Normocephalic nontraumatic Eyes: EOMI, ALEA, sclera nonicteric, conjunctive- pale ENT: No congestion, NSL bilateral symmetrical, oral mucosa dry Neck: Supple, carotid upstroke +2, trachea midline, JVD-3 cm, C spine- Full ROM No thyroid or lymph node , no use of sternomastoid muscle Chest: Bilateral symmetrical expansions, No costochondral tenderness Breasts: I exam - Bilateral symmetrical, Pexam - deferred Lungs: clear breath sounds all over except reduced at bases CVS: PMI- cm medial to L MCL in fifth ICS , S1- S2 NSR no S3 GI: Abdomen soft, obese, bowel sounds normoactive No focal tenderness, no rebound tenderness No hepatosplenomegaly, no mass no hernia , : No CVA tenderness, no bladder mass palpable, genitalia-NE SKIN: Turgor normal, color pink, no rash, no icterus, No varicosity, no ulcers or wounds EXTs: No edema, color pink, no rash, no ecchymosis distal pulses +2 capillary refill <2 seconds, No open wounds JOINTS; full range of motion BACK: No apparent lumbosacral spinal muscle tenderness, LYMPH NODES: No cervical, axillary or inguinal lymph nodes Neuro: Awake alert oriented 4, coherent, all cognitives- intact No pronator drift, no focal motor deficit, No focal sensory deficit, DTR +2, gait steady PSYCH: Affect mildly depressed-denies suicidal ideation laboratory and microbiology Laboratory Tests 10/03/24 06:40 10/02/24 04:42 Test 10/02/24 04:42 Range/Units Serum Glucose 233 H 74-106 mg/dL Problem List 1. Upper GI bleeding Rule out peptic ulcer disease 2. Acute post hemorrhage iron-deficiency anemia 3. Hemolytic anemia 4. Acute kidney injury on CKD From inadvertent effect of diuretics and antihypertensives 5. Fairly well-controlled NIDDM and hypertension Received lower GI endoscopy which he tolerated well Received colonoscopy which was remarkable for Sigmoid diverticulosis, internal hemorrhoids, no mass EGD showed acute antral gastritis Multiple biopsies were taken Recommended patient to continue receiving Protonix Maalox Recommended patient to receive colonoscopy by tomorrow morning Risks benefits complications of endoscopic procedures are well discussed with the patient The patient gave informed consent Assessment/Plan Continue hospital stay at medical floor with telemetry on next order 6 hours Discharge patient home if hemodynamically and clinically stable Reconciled discharge medications Outpatient monitoring of CBC and renal functions Recommend oral intake of fluids Reviewed findings of EGD with the patient Reviewed findings of Colonoscopy Cautious use of diuretics and antihypertensives Continue IV Protonix Upper GI endoscopy as per Dr. Eve High by am Reviewed input of Dr. Eve Burnham VTE precautions Update patient The patient and/or family is well informed by me about 1. Clinical impression, treatment plans, side effects of medications, course of the disease and prognosis 2. All patient's question/ concerns raised by patient are satisfactorily addressed by me Total time spent 45 minutes 40% of time spent interviewing the patient and physical exam 30% of time spent in gathering lab datas and imaging studies 30 % of time is spent in patient education Dietary Evaluation Review Comments: 1. Advance diet to CCHO-60g when medically feasible. 2. Monitor intake to meet 75% of his needs. 3. Consider iron supplements Expected Outcomes/Goals: Improved nutriton related lab values. Gradual weight loss. SEVEN SOLO MD Oct 05, 2024 18:11
--- NOTE | 2024-10-05 19:28 | DVHPN2 ---
Progress Note - Dictate Date Seen: Oct 05, 2024 Medical Necessity Reason Pt with a Central, PICC or Fol: No Subjective Patient was seen and evaluated in follow up. Patient has no new complaints at this time. Patient denies any cardiac symptoms. Patient is cardiac stable for discharge. vital signs Vital Sign Date Time Temp Pulse Resp B/P (MAP) Pulse Ox O2 Delivery O2 Flow Rate FiO2 10/05/24 17:50 98.8 74 16 99 10/05/24 17:00 111/54 (73) 10/05/24 10:24 Room Air 0 97 Total Intake and Output 10/04/24 10/04/24 10/05/24 15:00 23:00 07:00 Intake Total 50 ml 1000 ml 110 ml Output Total 700 ml Balance 50 ml 300 ml 110 ml objective GENERAL: Awake, alert, oriented. LUNGS: Clear. CARDIOVASCULAR: Heart sounds are good. ABDOMEN: Soft. laboratory and microbiology Laboratory Tests 10/03/24 06:40 10/02/24 04:42 Test 10/02/24 04:42 Range/Units Serum Glucose 233 H 74-106 mg/dL Problem List Acute on chronic iron deficiency anemia. CAD. CHF. DM. HLD. HTN. History of PTCA on blood thinners. Assessment/Plan Continued all current supportive medical care. Morphine for pain management. Diuretics with Lasix. GI prophylactics. Additional plan as per the hospital course. Dietary Evaluation Review Comments: 1. Advance diet to CCHO-60g when medically feasible. 2. Monitor intake to meet 75% of his needs. 3. Consider iron supplements Expected Outcomes/Goals: Improved nutriton related lab values. Gradual weight loss. Plan discussed with: Patient LENORE ABRAHAM MD Oct 05, 2024 19:28
== END 2024-10-05 19:05 | disposition home or self-care (01) | DRG 393 ==
LOC: TELE-WESTW 16:47
PROVIDERS: ADMIT Specialist; ATTEND Specialist
PROC: 30233N1 Transfusion of Nonautologous Red Blood Cells into Peripheral Vein, Percutaneous Approach (ICD-10-PCS; principal; 2024-10-02)
PROC: 0DB98ZX Excision of Duodenum, Via Natural or Artificial Opening Endoscopic, Diagnostic (ICD-10-PCS; 2024-10-04)
PROC: 0DB68ZX Excision of Stomach, Via Natural or Artificial Opening Endoscopic, Diagnostic (ICD-10-PCS; 2024-10-04)
PROC: 0DBH8ZZ Excision of Cecum, Via Natural or Artificial Opening Endoscopic (ICD-10-PCS; 2024-10-05)
DX: K64.8 Other hemorrhoids (principal); K25.0 Acute gastric ulcer with hemorrhage; K57.31 Diverticulosis of large intestine without perforation or abscess with bleeding; I13.0 Hypertensive heart and chronic kidney disease with heart failure and stage 1 through stage 4 chronic kidney disease, or unspecified chronic kidney disease; I47.10 Supraventricular tachycardia, unspecified; I25.10 Atherosclerotic heart disease of native coronary artery without angina pectoris; K74.60 Unspecified cirrhosis of liver; E78.5 Hyperlipidemia, unspecified; E11.22 Type 2 diabetes mellitus with diabetic chronic kidney disease; N18.9 Chronic kidney disease, unspecified; B89 Unspecified parasitic disease; I48.0 Paroxysmal atrial fibrillation; K21.9 Gastro-esophageal reflux disease without esophagitis; E86.1 Hypovolemia; D63.1 Anemia in chronic kidney disease; I50.9 Heart failure, unspecified; Z82.0 Family history of epilepsy and other diseases of the nervous system; Z83.3 Family history of diabetes mellitus; Z98.61 Coronary angioplasty status; Z86.73 Personal history of transient ischemic attack (TIA), and cerebral infarction without residual deficits; Z95.1 Presence of aortocoronary bypass graft; Z82.5 Family history of asthma and other chronic lower respiratory diseases; Z79.84 Long term (current) use of oral hypoglycemic drugs; D50.9 Iron deficiency anemia, unspecified; D50.0 Iron deficiency anemia secondary to blood loss (chronic)
CPT/HCPCS: 36415; 43239; 76700; 80053; 83540; 83550; 85014; 85018; 85025; 85045; 86850; 86900; 86901; 86920; G0378; J2250; J2470; J2704